=== PATIENT | female | born 1940 | race Caucasian/White ===

== ENCOUNTER 2016-10-28 00:38 | Observation (INO) | payer MEDICARE, MEDICAID ==
[2016-10-28] MEDS ORDERED: Pantoprazole 40 MG Vial IVPUSH ONE (00:43)
[2016-10-28] MEDS ORDERED: Aspirin 81 MG Tab.Chew PO ONE (00:43)
[2016-10-28] MEDS ORDERED: Sodium Chloride 0.9% 1,000 ML IV SCH (00:45)
--- NOTE | 2016-10-28 00:45 | EDM.PDOC ---
ED HPI GENERAL MEDICAL PROBLEM - General Stated Complaint: CHEST PAINS Time Seen by Provider: 10/28/16 00:44 Source of Information: Reports: Patient - History of Present Illness INITIAL COMMENTS - FREE TEXT/NARRATIVE: HISTORY AND PHYSICAL: History of present illness: [] Patient presents with chest pain and pressure 5/10 nonradiating at current, earlier she did have some pain radiating to the jaw, she attributes pain to eating sausage night for dinner at 6 PM pain began at 11 PM she does have belching that is persistent no fever nausea vomiting chills sweats no shortness of breath headache dizziness or palpitation no bowel or urine symptoms pain is not associated with shortness breath her diaphoresis Patient was provided nitroglycerin blood pressure dropped from 185/113-126/80 with resolution of pain History of hypertension and hypothyroidism Review of systems: As per history of present illness and below otherwise all systems reviewed and negative. Past medical history: As per history of present illness and as reviewed below otherwise noncontributory. Surgical history: As per history of present illness and as reviewed below otherwise noncontributory. Social history: No reported history of drug or alcohol abuse. Family history: As per history of present illness and as reviewed below otherwise noncontributory. Physical exam: HEENT: Atraumatic, normocephalic, pupils reactive, negative for conjunctival pallor or scleral icterus, mucous membranes moist, throat clear, neck supple, nontender, trachea midline. Lungs: Clear to auscultation, breath sounds equal bilaterally, chest nontender. Heart: S1S2, regular, negative for clicks, rubs, or JVD. Abdomen: Soft, nondistended, nontender. Negative for masses or hepatosplenomegaly. Negative for costovertebral tenderness. Pelvis: Stable nontender. Genitourinary: Deferred. Rectal: Deferred. Extremities: Atraumatic, negative for cords or calf pain. Neurovascular unremarkable. Neuro: Awake, alert, oriented. Cranial nerves II through XII unremarkable. Cerebellum unremarkable. Motor and sensory unremarkable throughout. Exam nonfocal. Diagnostics: [] Lab as below EKG Chest one view Therapeutics: [] Normal saline 125 cc per hour Protonix 80 mg IV Aspirin 324 mg chewable Nitroglycerin sublingual Lopressor 5 mg IV Impression: GERD [] Chest pain Hypertensive emergency resolved ACS Definitive disposition and diagnosis as appropriate pending reevaluation and review of above. Epigastric Pain Score (Numeric/FACES): 7 - Related Data Allergies Allergy/AdvReac Type Severity Reaction Status Date / Time No Known Allergies Allergy Verified 02/08/16 19:17 Home Meds: Home Meds Levothyroxine [Synthroid] 100 mcg PO DAILY 08/10/14 [History] Losartan/Hydrochlorothiazide [Losartan-HCTZ 100-25 MG] 1 tab PO DAILY 08/10/14 [ History] Memantine HCl [Namenda] 5 mg PO DAILY 10/28/16 [History] Past Medical History Cardiovascular History: Reports: Hypertension Other Cardiovascular History: Pt compalins of chest pain, son of pt reported it' s been going on for 4 days now but pt stated the pain worsen this morning that it got up into her left shouylder blade. Pt claimed no history of chest pain. 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: Endocrine/Metabolic History: Reports: Hyperthyroidism - Infectious Disease History Infectious Disease History: Reports: Chicken pox - Past Surgical History HEENT Surgical History: Reports: Tonsillectomy GI Surgical History: Reports: Cholecystectomy, Colonoscopy Female Surgical History: Reports: Hysterectomy Social & Family History - Family History Family Medical History: Noncontributory - Tobacco Use Smoking Status *Q: Never Smoker Second Hand Smoke Exposure: No - Caffeine Use Caffeine Use: Reports: Coffee Caffeine Use Comment: 1cup/day - Alcohol Use Days Per Week of Alcohol Use: 0 - Recreational Drug Use Recreational Drug Use: No ED ROS GENERAL - Review of Systems Review Of Systems: ROS reveals no pertinent complaints other than HPI. ED EXAM, GENERAL - Physical Exam Exam: See Below Course - Vital Signs Last Recorded V/S: Last Vital Signs Temp 36.3 C 10/28/16 00:47 Pulse 86 10/28/16 01:34 Resp 18 10/28/16 01:34 BP 145/76 H 10/28/16 01:34 Pulse Ox 95 10/28/16 01:34 - Orders/Labs/Meds Orders: Active Orders 24 hr Category Date Time Status EKG Documentation Completion [RC] STAT Care 10/28/16 00:44 Active Chest 1V Frontal [CR] Stat Exams 10/28/16 00:44 Taken UA W/MICROSCOPIC [URIN] Stat Lab 10/28/16 00:43 Uncollected Sodium Chloride 0.9% [Normal Saline] 1,000 ml Med 10/28/16 00:45 Active IV STAT Medication Orders Sodium Chloride (Normal Saline) 1,000 mls @ 125 mls/hr IV STAT FANNY Last Admin: 10/28/16 01:01 Dose: 125 mls/hr Labs: Laboratory Tests 10/28/16 10/28/16 10/28/16 Range/Units 01:00 01:00 01:00 WBC 5.65 (4.0-11.0) K/uL RBC 4.55 (4.30-5.90) M/uL Hgb 13.8 (12.0-16.0) g/dL Hct 42.1 (36.0-46.0) % MCV 92.5 (80.0-98.0) fL MCH 30.3 (27.0-32.0) pg MCHC 32.8 (31.0-37.0) g/dL RDW Std Deviation 45.8 (28.0-62.0) fl RDW Coeff of Arelis 14 (11.0-15.0) % Plt Count 218 (150-400) K/uL MPV 9.70 (7.40-12.00) fL Neut % (Auto) 56.0 (48.0-80.0) % Lymph % (Auto) 31.3 (16.0-40.0) % Moca % (Auto) 9.2 (0.0-15.0) % Eos % (Auto) 3.0 (0.0-7.0) % Baso % (Auto) 0.5 (0.0-1.5) % Neut # (Auto) 3.2 (1.4-5.7) K/uL Lymph # (Auto) 1.8 (0.6-2.4) K/uL Moca # (Auto) 0.5 (0.0-0.8) K/uL Eos # (Auto) 0.2 (0.0-0.7) K/uL Baso # (Auto) 0.0 (0.0-0.1) K/uL Nucleated RBC % 0.0 /100WBC Nucleated RBCs # 0 K/uL INR 0.96 (0.86-1.11) Sodium 140 (136-146) mmol/L Potassium 3.2 L (3.5-5.1) mmol/L Chloride 105 (98-110) mmol/L Carbon Dioxide 23 (21-31) mmol/L BUN 17 (6.0-23.0) mg/dL Creatinine 1.1 (0.6-1.5) mg/dL Est Cr Clr Drug Dosing 37.87 mL/min Estimated GFR (MDRD) 48.0 ml/min Glucose 97 (60-110) mg/dL Calcium 9.4 (8.8-10.8) mg/dL Total Bilirubin 0.4 (0.1-1.5) mg/dL AST 24 (5-40) IU/L ALT 16 (8-54) IU/L Alkaline Phosphatase 66 (40-150) Creatine Kinase 189 (9-236) IU/L CK-MB (CK-2) 3.6 (0-6.6) ng/ml Troponin I (0.0-0.29) NG/ML Total Protein 7.0 (6.0-8.0) g/dL Albumin 3.8 (3.4-4.8) g/dL Globulin 3.2 (2.0-3.5) g/dL Albumin/Globulin Ratio 1.2 L (1.3-2.8) 10/28/16 Range/Units 01:00 WBC (4.0-11.0) K/uL RBC (4.30-5.90) M/uL Hgb (12.0-16.0) g/dL Hct (36.0-46.0) % MCV (80.0-98.0) fL MCH (27.0-32.0) pg MCHC (31.0-37.0) g/dL RDW Std Deviation (28.0-62.0) fl RDW Coeff of Arelis (11.0-15.0) % Plt Count (150-400) K/uL MPV (7.40-12.00) fL Neut % (Auto) (48.0-80.0) % Lymph % (Auto) (16.0-40.0) % Moca % (Auto) (0.0-15.0) % Eos % (Auto) (0.0-7.0) % Baso % (Auto) (0.0-1.5) % Neut # (Auto) (1.4-5.7) K/uL Lymph # (Auto) (0.6-2.4) K/uL Moca # (Auto) (0.0-0.8) K/uL Eos # (Auto) (0.0-0.7) K/uL Baso # (Auto) (0.0-0.1) K/uL Nucleated RBC % /100WBC Nucleated RBCs # K/uL INR (0.86-1.11) Sodium (136-146) mmol/L Potassium (3.5-5.1) mmol/L Chloride (98-110) mmol/L Carbon Dioxide (21-31) mmol/L BUN (6.0-23.0) mg/dL Creatinine (0.6-1.5) mg/dL Est Cr Clr Drug Dosing mL/min Estimated GFR (MDRD) ml/min Glucose (60-110) mg/dL Calcium (8.8-10.8) mg/dL Total Bilirubin (0.1-1.5) mg/dL AST (5-40) IU/L ALT (8-54) IU/L Alkaline Phosphatase (40-150) Creatine Kinase (9-236) IU/L CK-MB (CK-2) (0-6.6) ng/ml Troponin I < 0.10 (0.0-0.29) NG/ML Total Protein (6.0-8.0) g/dL Albumin (3.4-4.8) g/dL Globulin (2.0-3.5) g/dL Albumin/Globulin Ratio (1.3-2.8) Meds: Medications Generic Name Dose Route Start Last Admin Trade Name Freq PRN Reason Stop Dose Admin Sodium Chloride 1,000 mls @ 125 mls/hr 10/28/16 00:45 10/28/16 01:01 Normal Saline IV 125 mls/hr STAT FANNY Administration Discontinued Medications Generic Name Dose Route Start Last Admin Trade Name Freq PRN Reason Stop Dose Admin Aspirin 324 mg 10/28/16 00:43 10/28/16 01:02 Aspirin PO 10/28/16 00:44 324 mg ONETIME ONE Administration Metoprolol Tartrate 5 mg 10/28/16 00:58 Lopressor IVPUSH 10/28/16 00:59 NOW STA Nitroglycerin 0.4 mg 10/28/16 00:59 10/28/16 01:05 Nitrostat SL 10/28/16 01:10 0.4 mg Q5M PRN Administration Chest Pain Pantoprazole Sodium 80 mg 10/28/16 00:43 10/28/16 01:02 Protonix Iv IVPUSH 10/28/16 00:44 80 mg .BOLUS ONE Administration Departure - Departure Time of Disposition: 01:52 Disposition: Admitted As Inpatient 64 Condition: fair Clinical Impression: Acute coronary syndrome - My Orders Last 24 Hours: My Active Orders 10/28/16 00:43 UA W/MICROSCOPIC [URIN] Stat 10/28/16 00:44 EKG Documentation Completion [RC] STAT Chest 1V Frontal [CR] Stat 10/28/16 00:45 Sodium Chloride 0.9% [Normal Saline] 1,000 ml IV STAT - Assessment/Plan Last 24 Hours: My Active Orders 10/28/16 00:43 UA W/MICROSCOPIC [URIN] Stat 10/28/16 00:44 EKG Documentation Completion [RC] STAT Chest 1V Frontal [CR] Stat 10/28/16 00:45 Sodium Chloride 0.9% [Normal Saline] 1,000 ml IV STAT
[2016-10-28] MEDS ORDERED: Metoprolol Tartrate 5 MG/5 ML SDV IVPUSH STA (00:58)
[2016-10-28] MEDS ORDERED: Nitroglycerin 0.4 MG Tab.SL SL PRN (00:59)
[2016-10-28] MEDS ORDERED: Sodium Chloride 0.9% 2.5 ML Syringe FLUSH PRN (02:46)
[2016-10-28] MEDS ORDERED: Sodium Chloride 0.9% 10 ML Syringe FLUSH PRN (02:46)
[2016-10-28] MEDS ORDERED: Nitroglycerin 2% Oint 1 GM UD Packet TOP PRN (02:47)
[2016-10-28] MEDS ORDERED: Morphine 2 MG/ML Syringe IVPUSH PRN (02:49)
[2016-10-28] MEDS ORDERED: Potassium Chloride 20 MEQ Tab.ER PO ONE (02:52)
[2016-10-28] MEDS ORDERED: Loperamide 2 MG Cap PO PRN (02:53)
[2016-10-28] MEDS ORDERED: Hydrochlorothiazide/Losartan 12.5-50 mg Tab PO SCH (09:00)
[2016-10-28] MEDS ORDERED: Levothyroxine 100 MCG Tab PO SCH (09:00)
[2016-10-28] MEDS ORDERED: Memantine 10 MG Tab PO SCH (09:00)
--- NOTE | 2016-10-28 11:20 | PCM.HP ---
[id number] Diagnosis/Problem Admission Diagnosis/Problem Acute coronary syndrome Source of Information: Patient History Limitations: Reports: No limitations - History of Present Illness Initial Comments - Free Text/Narative: The patient is a 76-year-old lady who presented to the emergency department with chest pain with some radiation into her jaw, and arm. The patient reports that she had been working heavily through the night in order to move to a new house out of town. The patient says that she had worked heavily to get to work completed and then suddenly felt very tired and weak had something to eat which she does not normally eat and started to develop chest pain as a result of this. The patient had described the pain as pressure and burning and belching. The patient has a primary care physician locally that she sees. Patient has been in her usual state of health up at the present time. Physical examination the patient was pain-free, no pain in her abdomen and back at her baseline. The patient also has a history of chest wall pain, hypertension, hypothyroidism and mild dementia. She's been taking medications for these. The patient was last evaluated by her internal medicine physician on Aug 16, 2016. 3 sets of troponins have been negative and the patient does not have a dynamic EKG. The patient should followup with her primary care physician for possible stress test. The patient will be discharged to have diet as tolerated and activity as tolerated. Onset of Symptoms: Reports: sudden Duration of Symptoms: Reports: Hour(s):, Improving Location: Reports: chest, abdomen Quality: Reports: Ache, Stabbing Severity: moderate Improves with: Reports: None Worsens with: Reports: None Associated Symptoms: Reports: no other symptoms Epigastric Pain Score (Numeric/FACES): 7 - Related Data Allergies/Adverse Reactions: Allergies Allergy/AdvReac Type Severity Reaction Status Date / Time No Known Allergies Allergy Verified 02/08/16 19:17 Home Medications: Home Meds Levothyroxine [Synthroid] 100 mcg PO DAILY 08/10/14 [History] Losartan/Hydrochlorothiazide [Losartan-HCTZ 100-25 MG] 1 tab PO DAILY 08/10/14 [ History] Memantine HCl [Namenda] 5 mg PO DAILY 10/28/16 [History] Past Medical History HEENT History: Reports: None Other HEENT History: wears glasses Cardiovascular History: Reports: Hypertension Other Cardiovascular History: Pt complains of chest pain, son of pt reported it' s been going on for 4 days now but pt stated the pain worsen this morning that it got up into her left shouylder blade. Pt claimed no history of chest pain. 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 Endocrine/Metabolic History: Reports: Hyperthyroidism - Infectious Disease History Infectious Disease History: Reports: Chicken pox - Past Surgical History HEENT Surgical History: Reports: Tonsillectomy Cardiovascular Surgical History: Reports: None GI Surgical History: Reports: Cholecystectomy, Colonoscopy Female Surgical History: Reports: Hysterectomy Endocrine Surgical History: Reports: None Musculoskeletal Surgical History: Reports: None Social & Family History - Family History Family Medical History: Noncontributory Cardiac: Reports: Hypertension Neurological: Reports: Alzheimers disease - Tobacco Use Smoking Status *Q: Never Smoker Second Hand Smoke Exposure: No - Caffeine Use Caffeine Use: Reports: Coffee Caffeine Use Comment: 1cup/day - Alcohol Use Days Per Week of Alcohol Use: 0 - Recreational Drug Use Recreational Drug Use: No H&P Review of Systems - Review of Systems: Review Of Systems: See Below General: Reports: no symptoms HEENT: Reports: no symptoms Pulmonary: Reports: Shortness of Breath Cardiovascular: Reports: chest pain Gastrointestinal: Reports: No symptoms Genitourinary: Reports: no symptoms Musculoskeletal: Reports: no symptoms Skin: Reports: no symptoms Psychiatric: Reports: no symptoms Neurological: Reports: No Symptoms Hematologic/Lymphatic: Reports: no symptoms Immunologic: Reports: no symptoms Exam - Exam Exam: See Below - Vital Signs Vital Signs: Last Vital Signs Temp 36.6 C 10/28/16 08:00 Pulse 66 10/28/16 08:00 Resp 18 10/28/16 08:00 BP 146/73 H 10/28/16 08:00 Pulse Ox 91 L 10/28/16 08:00 Weight: 103.011 kg - Exam Quality Assessment: No: supplemental oxygen General: alert, oriented, 4 HEENT: Conjunctiva clear, EACs clear, EOMI, Hearing intact, Mucosa moist & pink , Nares patent, Normal nasal septum Neck: supple, trachea midline. No: lymphadenopathy Lungs: Decreased breath sounds, Rales Cardiovascular: regular rate, regular rhythm Abdomen: normal bowel sounds Back Exam: decreased range of motion Extremities: normal inspection Skin: warm, dry, intact Neurological: cranial nerves intact Neuro Extensive - Mental Status: alert, oriented x3 Neuro Extensive - Motor, Sensory, Reflexes: CN II-XII intact Psychiatric: alert, normal affect - Patient Data Lab Results last 24 hrs: Laboratory Results - last 24 hr 10/28/16 10/28/16 10/28/16 Range/Units 02:26 07:14 07:14 Potassium 3.3 L (3.5-5.1) mmol/L Troponin I < 0.10 (0.0-0.29) NG/ML Urine Color YELLOW Urine Appearance SLT CLOUDY Urine pH 6.0 (5.0-8.0) Ur Specific [place] 1.015 (1.001-1.035) Urine Protein NEGATIVE (NEGATIVE) mg/dL Urine Glucose (UA) NEGATIVE (NEGATIVE) mg/dL Urine Ketones NEGATIVE (NEGATIVE) mg/dL Urine Occult Blood NEGATIVE (NEGATIVE) Urine Nitrite NEGATIVE (NEGATIVE) Urine Bilirubin NEGATIVE (NEGATIVE) Urine Urobilinogen 0.2 (<2.0) EU/dL Ur Leukocyte Esterase SMALL (NEGATIVE) Urine RBC 0-2 (0-2/HPF) Urine WBC 12-20 (0-5/HPF) Ur Epithelial Cells FEW (NONE-FEW) Amorphous Sediment LIGHT (NEGATIVE) Urine Bacteria FEW (NEGATIVE) Urine Mucus LIGHT (NONE-MOD) Result Diagrams: 10/28/16 01:00 10/28/16 07:14 *Q Meaningful Use (ADM) - VTE *Q VTE Criteria *Q: - Stroke *Q Stroke Criteria *Q: - AMI *Q AMI Criteria *Q: - Problem List (1) Acute coronary syndrome SNOMED Code(s): 264397273 ICD Code: I24.9 - ACUTE ISCHEMIC HEART DISEASE, UNSPECIFIED Status: Acute Current Visit: Yes (2) Hiatal hernia SNOMED Code(s): 77075214 ICD Code: K44.9 - DIAPHRAGMATIC HERNIA WITHOUT OBSTRUCTION OR GANGRENE Status: Chronic Priority: Medium Current Visit: Yes (3) Atypical chest pain SNOMED Code(s): 077322073 ICD Code: R07.89 - OTHER CHEST PAIN Status: Acute Current Visit: No Problem List Initiated/Reviewed/Updated: Yes Orders Last 24hrs: Active Orders 24 hr Category Date Time Status Admission Status [Patient Status] [ADT] Routine ADT 10/28/16 02:44 Active EKG 12 Lead [EKG Documentation Completion] [RC] ROUTINE Care 10/28/16 08:00 Active Telemetry Monitoring [Cardiac Monitoring] [RC] . Care 10/28/16 02:52 Active DIRECTED Heart Healthy Diet [DIET] Diet 10/28/16 Breakfast Active CULTURE URINE [RM] Routine Lab 10/28/16 02:29 Received TROPONIN I [CHEM] Q6H Lab 10/28/16 13:00 Ordered Hydrochlorothiazide/Losartan [Hyzaar 50-12.5 MG] Med 10/28/16 09:00 Active 2 tab PO DAILY Levothyroxine [Synthroid] Med 10/28/16 09:00 Active 100 mcg PO ACBREAKFAST Loperamide [Imodium] Med 10/28/16 02:53 Active 4 mg PO Q6H PRN Memantine [Namenda] Med 10/28/16 09:00 Active 5 mg PO DAILY Morphine Med 10/28/16 02:49 Active 2 mg IVPUSH Q4H PRN Nitroglycerin [Nitro-Bid 2%] Med 10/28/16 02:47 Active 1 gm TOP Q8H PRN Sodium Chloride 0.9% [Saline Flush] Med 10/28/16 02:46 Active 10 ml FLUSH ASDIRECTED PRN Sodium Chloride 0.9% [Saline Flush] Med 10/28/16 02:46 Active 2.5 ml FLUSH ASDIRECTED PRN Convert IV to Saline Lock [OM.PC] Routine Oth 10/28/16 02:46 Ordered Medication Orders HCTZ/Losartan Potassium (Hyzaar 50-12.5 Mg) 2 tab PO DAILY FANNY Last Admin: 10/28/16 09:22 Dose: 2 tab Levothyroxine Sodium (Synthroid) 100 mcg PO ACBREAKFAST FANNY Last Admin: 10/28/16 09:23 Dose: 100 mcg Loperamide HCl (Imodium) 4 mg PO Q6H PRN PRN Reason: Diarrhea Memantine (Namenda) 5 mg PO DAILY FANNY Last Admin: 10/28/16 09:23 Dose: 5 mg Morphine Sulfate (Morphine) 2 mg IVPUSH Q4H PRN PRN Reason: Chest Pain Nitroglycerin (Nitro-Bid 2%) 1 gm TOP Q8H PRN PRN Reason: Chest Pain Sodium Chloride (Saline Flush) 10 ml FLUSH ASDIRECTED PRN PRN Reason: Keep Vein Open Sodium Chloride (Saline Flush) 2.5 ml FLUSH ASDIRECTED PRN PRN Reason: Keep Vein Open Assessment/Plan Comment:: Patient is a 76-year-old lady who is admitted acutely secondary to atypical chest pain. The patient did have food that she was not used to eating and subsequently had pain as a result of this. Workup has been normal from a cardiac standpoint. The patient says that she does have a history of hiatal hernia and this is likely the origin of the patient's atypical chest pain. The patient should followup with her primary care physician in 5-7 days. She'll also be discharged with an activity as tolerated and also to continue her medications as prescribed. The patient is doing well and her vital signs are stable.
[2016-10-28 13:05] VITALS: BP 140/70
--- NOTE | 2016-10-29 17:55 | CR ---
EXAM DATE: 10/28/16 PATIENT'S AGE: 76 Patient: MELONY MOON Facility: [place], [place] Site . Site : [id number] Study: XRay Chest [id number]/29/2017 1:24:38 AM Ordering Physician: Doctor Rondon Final Report: INDICATION: chest pain TECHNIQUE: Chest 1 view COMPARISON: June 30, 2016. FINDINGS: Cardiovascular and mediastinum: Heart size and vasculature are normal in caliber and appearance. Mediastinum is within normal limits. Lungs and pleural space: No focal consolidation. No sign of pleural effusion. No pneumothorax. Bones and soft tissues: Degenerative changes. . IMPRESSION: No acute cardiopulmonary disease. Dictated by Glenn Jules MD @ 10/28/2016 1:27:07 AM Dictated by: Glenn Jules MD @ 10/28/2016 01:27:13 (Electronic Signature) Report Signed by Proxy. [email or web address]
== END 2016-10-28 15:25 | disposition home or self-care (01) ==
LOC: MW.ED 00:38 → MW.MS 01:53
PROVIDERS: ADMIT Internal Medicine; ATTEND Internal Medicine
DX: R07.89 Other chest pain (principal); I10 Essential (primary) hypertension; E03.9 Hypothyroidism, unspecified; K21.9 Gastro-esophageal reflux disease without esophagitis; Z79.899 Other long term (current) drug therapy; M06.9 Rheumatoid arthritis, unspecified; G89.29 Other chronic pain; M54.9 Dorsalgia, unspecified; K44.9 Diaphragmatic hernia without obstruction or gangrene
CPT/HCPCS: 36415; 71010; 80053; 81001; 82550; 82553; 84132; 84484; 85025; 85610; 87086; 93005; 96361; 96374; 99285; A9270; C9113; J7040; G0378

== ENCOUNTER 2016-11-28 02:11 | Emergency (ER) | payer MEDICARE, MEDICAID ==
[2016-11-28] MEDS ORDERED: Ondansetron 4 MG/2 ML SDV IVPUSH ONE (02:19)
[2016-11-28] MEDS ORDERED: Sodium Chloride 0.9% 500 ML IV ONE (02:24)
--- NOTE | 2016-11-28 02:27 | EDM.PDOC ---
ED HPI GENERAL MEDICAL PROBLEM - General Chief Complaint: Abdominal Pain Stated Complaint: AMBULANCE Time Seen by Provider: 11/28/16 02:24 - History of Present Illness INITIAL COMMENTS - FREE TEXT/NARRATIVE: HISTORY AND PHYSICAL: History of present illness: Patient is a 76-year-old female with a history of coronary artery disease past surgical history includes cholecystectomy and hysterectomy presents with her right-sided abdominal pain that started approximately 7 PM she's had associated nausea she denies chest pain or shortness of breath denies trauma denies urinary symptoms denies vaginal discharge bleeding or other concern Review of systems: As per history of present illness and below otherwise all systems reviewed and negative. Past medical history: As per history of present illness and as reviewed below otherwise noncontributory. Surgical history: As per history of present illness and as reviewed below otherwise noncontributory. Social history: No reported history of drug or alcohol abuse. Family history: As per history of present illness and as reviewed below otherwise noncontributory. Physical exam: HEENT: Atraumatic, normocephalic, pupils reactive, negative for conjunctival pallor or scleral icterus, mucous membranes moist, throat clear, neck supple, nontender, trachea midline. Lungs: Clear to auscultation, breath sounds equal bilaterally, chest nontender. Heart: S1S2, regular, negative for clicks, rubs, or JVD. Abdomen: Soft, nondistended, right-sided tenderness that's not well localized no rebound no guarding. Negative for masses or hepatosplenomegaly. Negative for costovertebral tenderness. Pelvis: Stable nontender. Genitourinary: Deferred. Rectal: Deferred. Extremities: Atraumatic, negative for cords or calf pain. Neurovascular unremarkable. Neuro: Awake, alert, oriented. Cranial nerves II through XII unremarkable. Cerebellum unremarkable. Motor and sensory unremarkable throughout. Exam nonfocal. Diagnostics: CBC CMP PT/INR troponin lipase chest x-ray CT abdomen and pelvis Therapeutics: Normal saline 500 cc bolus Impression: #1 right-sided abdominal pain Definitive disposition and diagnosis as appropriate pending reevaluation and review of above. Right Lower Abdomen Pain Score (Numeric/FACES): 8 - Related Data Allergies Allergy/AdvReac Type Severity Reaction Status Date / Time No Known Allergies Allergy Verified 11/28/16 02:25 Home Meds: Home Meds Levothyroxine [Synthroid] 100 mcg PO DAILY 08/10/14 [History] Losartan/Hydrochlorothiazide [Losartan-HCTZ 100-25 MG] 1 tab PO DAILY 08/10/14 [ History] Memantine HCl [Namenda] 5 mg PO DAILY 10/28/16 [History] Past Medical History HEENT History: Reports: None Other HEENT History: wears glasses Cardiovascular History: Reports: Hypertension Other Cardiovascular History: Pt complains of chest pain, son of pt reported it' s been going on for 4 days now but pt stated the pain worsen this morning that it got up into her left shouylder blade. Pt claimed no history of chest pain. 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 Endocrine/Metabolic History: Reports: Hyperthyroidism - Infectious Disease History Infectious Disease History: Reports: Chicken Pox - Past Surgical History HEENT Surgical History: Reports: Tonsillectomy Cardiovascular Surgical History: Reports: None GI Surgical History: Reports: Cholecystectomy, Colonoscopy Female Surgical History: Reports: Hysterectomy Endocrine Surgical History: Reports: None Musculoskeletal Surgical History: Reports: None Social & Family History - Family History Family Medical History: Noncontributory Cardiac: Reports: Hypertension Neurological: Reports: Alzheimers Disease - Tobacco Use Smoking Status *Q: Never Smoker Second Hand Smoke Exposure: No - Caffeine Use Caffeine Use: Reports: Coffee Caffeine Use Comment: 1cup/day - Alcohol Use Days Per Week of Alcohol Use: 0 - Recreational Drug Use Recreational Drug Use: No ED ROS GENERAL - Review of Systems Review Of Systems: ROS reveals no pertinent complaints other than HPI. ED EXAM, GENERAL - Physical Exam Exam: See Below (See dictation) Course - Vital Signs Last Recorded V/S: Last Vital Signs Temp 36.4 C 11/28/16 02:19 Pulse 78 11/28/16 03:14 Resp 16 11/28/16 03:14 BP 164/88 H 11/28/16 03:14 Pulse Ox 98 11/28/16 03:14 - Orders/Labs/Meds Orders: Active Orders 24 hr Category Date Time Status EKG Documentation Completion [RC] STAT Care 11/28/16 02:25 Active Abdomen Pelvis wo Cont [CT] Stat Exams 11/28/16 02:25 Taken Chest 1V Frontal [CR] Stat Exams 11/28/16 02:29 Taken Labs: Laboratory Tests 11/28/16 11/28/16 11/28/16 Range/Units 02:20 02:20 02:20 WBC 8.18 (4.0-11.0) K/uL RBC 4.55 (4.30-5.90) M/uL Hgb 13.9 (12.0-16.0) g/dL Hct 42.3 (36.0-46.0) % MCV 93.0 (80.0-98.0) fL MCH 30.5 (27.0-32.0) pg MCHC 32.9 (31.0-37.0) g/dL RDW Std Deviation 46.5 (28.0-62.0) fl RDW Coeff of Arelis 14 (11.0-15.0) % Plt Count 213 (150-400) K/uL MPV 9.50 (7.40-12.00) fL Neut % (Auto) 69.5 (48.0-80.0) % Lymph % (Auto) 18.3 (16.0-40.0) % Banks % (Auto) 10.4 (0.0-15.0) % Eos % (Auto) 1.6 (0.0-7.0) % Baso % (Auto) 0.2 (0.0-1.5) % Neut # (Auto) 5.7 (1.4-5.7) K/uL Lymph # (Auto) 1.5 (0.6-2.4) K/uL Banks # (Auto) 0.9 H (0.0-0.8) K/uL Eos # (Auto) 0.1 (0.0-0.7) K/uL Baso # (Auto) 0.0 (0.0-0.1) K/uL Nucleated RBC % 0.0 /100WBC Nucleated RBCs # 0 K/uL INR (0.86-1.11) Sodium 139 (136-146) mmol/L Potassium 3.7 (3.5-5.1) mmol/L Chloride 104 (98-110) mmol/L Carbon Dioxide 24 (21-31) mmol/L BUN 26 H (6.0-23.0) mg/dL Creatinine 1.4 (0.6-1.5) mg/dL Est Cr Clr Drug Dosing 31.00 mL/min Estimated GFR (MDRD) 36.4 ml/min Glucose 105 (60-110) mg/dL Calcium 9.0 (8.8-10.8) mg/dL Total Bilirubin 0.6 (0.1-1.5) mg/dL AST 21 (5-40) IU/L ALT 15 (8-54) IU/L Alkaline Phosphatase 64 (40-150) Troponin I < 0.10 (0.0-0.29) NG/ML Total Protein 7.1 (6.0-8.0) g/dL Albumin 4.1 (3.4-4.8) g/dL Globulin 3.0 (2.0-3.5) g/dL Albumin/Globulin Ratio 1.4 (1.3-2.8) Lipase 57 (7-80) U/L Urine Color Urine Appearance Urine pH (5.0-8.0) Ur Specific [place] (1.001-1.035) Urine Protein (NEGATIVE) mg/dL Urine Glucose (UA) (NEGATIVE) mg/dL Urine Ketones (NEGATIVE) mg/dL Urine Occult Blood (NEGATIVE) Urine Nitrite (NEGATIVE) Urine Bilirubin (NEGATIVE) Urine Urobilinogen (<2.0) EU/dL Ur Leukocyte Esterase (NEGATIVE) Urine RBC (0-2/HPF) Urine WBC (0-5/HPF) Ur Epithelial Cells (NONE-FEW) Urine Bacteria (NEGATIVE) Urine Mucus (NONE-MOD) 11/28/16 11/28/16 Range/Units 02:20 02:25 WBC (4.0-11.0) K/uL RBC (4.30-5.90) M/uL Hgb (12.0-16.0) g/dL Hct (36.0-46.0) % MCV (80.0-98.0) fL MCH (27.0-32.0) pg MCHC (31.0-37.0) g/dL RDW Std Deviation (28.0-62.0) fl RDW Coeff of Arelis (11.0-15.0) % Plt Count (150-400) K/uL MPV (7.40-12.00) fL Neut % (Auto) (48.0-80.0) % Lymph % (Auto) (16.0-40.0) % Banks % (Auto) (0.0-15.0) % Eos % (Auto) (0.0-7.0) % Baso % (Auto) (0.0-1.5) % Neut # (Auto) (1.4-5.7) K/uL Lymph # (Auto) (0.6-2.4) K/uL [place] # (Auto) (0.0-0.8) K/uL Eos # (Auto) (0.0-0.7) K/uL Baso # (Auto) (0.0-0.1) K/uL Nucleated RBC % /100WBC Nucleated RBCs # K/uL INR 0.90 (0.86-1.11) Sodium (136-146) mmol/L Potassium (3.5-5.1) mmol/L Chloride (98-110) mmol/L Carbon Dioxide (21-31) mmol/L BUN (6.0-23.0) mg/dL Creatinine (0.6-1.5) mg/dL Est Cr Clr Drug Dosing mL/min Estimated GFR (MDRD) ml/min Glucose (60-110) mg/dL Calcium (8.8-10.8) mg/dL Total Bilirubin (0.1-1.5) mg/dL AST (5-40) IU/L ALT (8-54) IU/L Alkaline Phosphatase (40-150) Troponin I (0.0-0.29) NG/ML Total Protein (6.0-8.0) g/dL Albumin (3.4-4.8) g/dL Globulin (2.0-3.5) g/dL Albumin/Globulin Ratio (1.3-2.8) Lipase (7-80) U/L Urine Color YELLOW Urine Appearance CLEAR Urine pH 5.5 (5.0-8.0) Ur Specific [place] 1.025 (1.001-1.035) Urine Protein NEGATIVE (NEGATIVE) mg/dL Urine Glucose (UA) NEGATIVE (NEGATIVE) mg/dL Urine Ketones NEGATIVE (NEGATIVE) mg/dL Urine Occult Blood TRACE-INTACT (NEGATIVE) Urine Nitrite NEGATIVE (NEGATIVE) Urine Bilirubin NEGATIVE (NEGATIVE) Urine Urobilinogen 0.2 (<2.0) EU/dL Ur Leukocyte Esterase TRACE (NEGATIVE) Urine RBC 5-8 (0-2/HPF) Urine WBC 4-8 (0-5/HPF) Ur Epithelial Cells MODERATE (NONE-FEW) Urine Bacteria FEW (NEGATIVE) Urine Mucus LIGHT (NONE-MOD) Meds: Medications Discontinued Medications Generic Name Dose Route Start Last Admin Trade Name Diana PRN Reason Stop Dose Admin Sodium Chloride 500 mls @ 999 mls/hr 11/28/16 02:24 11/28/16 02:38 Normal Saline IV 11/28/16 02:54 999 mls/hr .BOLUS ONE Administration Ondansetron HCl 4 mg 11/28/16 02:19 11/28/16 02:36 Zofran IVPUSH 11/28/16 02:20 4 mg ONETIME ONE Administration Departure - Departure Time of Disposition: 03:30 Disposition: Home, Self-Care 01 Condition: good Clinical Impression: Ureterolithiasis - Discharge Information Forms: ED Department Discharge Additional Instructions: The following information is given to patients seen in the emergency department who are being discharged to home. This information is to outline your options for follow-up care. We provide all patients seen in our emergency department with a follow-up referral. The need for follow-up, as well as the timing and circumstances, are variable depending upon the specifics of your emergency department visit. If you don't have a primary care physician on staff, we will provide you with a referral. We always advise you to contact your personal physician following an emergency department visit to inform them of the circumstance of the visit and for follow-up with them and/or the need for any referrals to a consulting specialist. The emergency department will also refer you to a specialist when appropriate. This referral assures that you have the opportunity for followup care with a specialist. All of these measure are taken in an effort to provide you with optimal care, which includes your followup. Under all circumstances we always encourage you to contact your private physician who remains a resource for coordinating your care. When calling for followup care, please make the office aware that this follow-up is from your recent emergency room visit. If for any reason you are refused follow-up, please contact the [facility] emergency department at and asked to speak to the emergency department charge nurse. [facility] [address] [place] [id number] Push fluids follow up primary medical doctor one to 2 days return as needed as discussed - My Orders Last 24 Hours: My Active Orders 11/28/16 02:25 EKG Documentation Completion [RC] STAT Abdomen Pelvis wo Cont [CT] Stat 11/28/16 02:29 Chest 1V Frontal [CR] Stat - Assessment/Plan Last 24 Hours: My Active Orders 11/28/16 02:25 EKG Documentation Completion [RC] STAT Abdomen Pelvis wo Cont [CT] Stat 11/28/16 02:29 Chest 1V Frontal [CR] Stat
[2016-11-28 03:43] VITALS: BP 160/85
--- NOTE | 2016-11-28 14:49 | CR ---
EXAM DATE: 11/28/16 PATIENT'S AGE: 76 Patient: MELONY MOON Facility: [place], [place] Site . Site : 1940 Study: XRay Chest [id number]/[id number] 2:43:48 AM Ordering Physician: Tatum Lopez Final Report: INDICATION: pain, sob TECHNIQUE: Chest 1 view. COMPARISON: 10/28/16 FINDINGS: Cardiovascular and mediastinum: Heart size and vasculature are normal in caliber and appearance. Mediastinum is within normal limits. Lungs and pleural space: Lungs are clear. No sign of infiltrate or mass. No sign of pleural effusion. No pneumothorax. Bones and soft tissues: No significant findings. IMPRESSION: Unremarkable chest. Dictated by: Ishan Goode MD @ 11/28/2016 02:47:19 (Electronic Signature) Report Signed by Proxy. [facility]ISION[facility]my
--- NOTE | 2016-11-28 14:50 | CT ---
EXAM DATE: 11/28/16 PATIENT'S AGE: 76 Patient: MELONY MOON Facility: [place], [place] Site . Site : 1940 Study: CT Abdomen/Pelvis [id number]/30/2017 3:17:15 AM Ordering Physician: Tatum Lopez Final Report: INDICATION: Abdominal pain TECHNIQUE: CT abdomen and pelvis without contrast. COMPARISON: 02/08/2016. FINDINGS: Lower chest: Unremarkable. Liver: Unremarkable. Spleen: Unremarkable. Pancreas: Unremarkable. Gallbladder and bile ducts: Status post cholecystectomy. Kidneys: 5 millimeter obstructing calculi distal right ureter with moderate right hydronephrosis. Punctate bilateral nonobstructing renal calculi. Adrenal glands: Unremarkable. GI tract: Colonic fecal retention. Appendix is normal. Vascular structures: Unremarkable. Lymph nodes: Unremarkable. Miscellaneous: Unremarkable. No free air or significant free fluid. Pelvic Organs: Stable 7 millimeter right ovarian/adnexal cyst. Bones: Brain 182 cc L4 over L5. IMPRESSION: 5 millimeter obstructing calculus distal right ureter with moderate hydronephrosis. Punctate bilateral nonobstructing renal calculi. Stable 7.0 centimeter right ovarian/adnexal cyst. Please note that all CT scans at this facility use dose modulation, iterative reconstruction, and/or weight-based dosing when appropriate to reduce radiation dose to as low as reasonably achievable. Dictated by Ishan Goode MD @ Nov 28 2016 3:21AM (Electronic Signature) Report Signed by Proxy. [facility]my
== END 2016-11-28 03:40 | disposition home or self-care (01) ==
LOC: MW.ED 02:11
DX: N13.2 Hydronephrosis with renal and ureteral calculous obstruction (principal); I10 Essential (primary) hypertension; E05.90 Thyrotoxicosis, unspecified without thyrotoxic crisis or storm; Z90.49 Acquired absence of other specified parts of digestive tract; Z90.710 Acquired absence of both cervix and uterus; Z98.890 Other specified postprocedural states; Z79.899 Other long term (current) drug therapy
CPT/HCPCS: 36415; 71010; 74176; 80053; 81001; 83690; 84484; 85025; 85610; 93005; 96361; 96374; 99285; J2405; J7040; 99284

== ENCOUNTER 2020-12-20 20:56 | Inpatient (IN) | payer MEDICARE, MEDICAID ==
--- NOTE | 2020-12-20 21:00 | EDM.PDOC ---
ED HPI GENERAL MEDICAL PROBLEM - General Stated Complaint: WEAKNESS, SICK Time Seen by Provider: 12/20/20 20:59 Source of Information: Reports: Patient History Limitations: Reports: No Limitations - History of Present Illness INITIAL COMMENTS - FREE TEXT/NARRATIVE: 80-year-old female past medical history hypertension, dementia presents for generalized weakness and feeling sick. Patient notes that for the last 2 days she has been experiencing nausea, vomiting, diarrhea. Denies bloody emesis or bloody stools. Denies recent antibiotic use. Denies any abdominal pain. Denies urinary symptoms. States that she feels dizzy and weak particularly with walking. Denies any chest pain or difficulty breathing. Difficulty in assessing how many episodes of vomiting or diarrhea. She notes chills and sh aking. - Related Data Allergies Allergy/AdvReac Type Severity Reaction Status Date / Time No Known Allergies Allergy Verified 12/20/20 21:01 Home Meds: Home Meds Levothyroxine [Synthroid] 88 mcg PO DAILY 08/10/14 [History] Losartan/Hydrochlorothiazide [Losartan-HCTZ 100-25 MG] 1 tab PO DAILY 08/10/14 [History] Memantine HCl [Namenda] 5 mg PO DAILY 10/28/16 [History] Aspirin 81 mg PO DAILY 12/20/20 [History] Potassium Chloride 10 meq PO DAILY 12/20/20 [History] Past Medical History HEENT History: Reports: None Other HEENT History: wears glasses Cardiovascular History: Reports: Hypertension Other Cardiovascular History: Pt complains of chest pain, son of pt reported it's been going on for 4 days now but pt stated the pain worsen this morning that it got up into her left shouylder blade. Pt claimed no history of chest pain. 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 Endocrine/Metabolic History: Reports: Hyperthyroidism - Infectious Disease History Infectious Disease History: Reports: Chicken Pox - Past Surgical History HEENT Surgical History: Reports: Tonsillectomy Cardiovascular Surgical History: Reports: None GI Surgical History: Reports: Cholecystectomy, Colonoscopy Female Surgical History: Reports: Hysterectomy Endocrine Surgical History: Reports: None Musculoskeletal Surgical History: Reports: None Social & Family History - Family History Family Medical History: No Pertinent Family History Cardiac: Reports: Hypertension Neurological: Reports: Alzheimers Disease - Caffeine Use Caffeine Use: Reports: Coffee Caffeine Use Comment: 1cup/day ED ROS GENERAL - Review of Systems Review Of Systems: Comprehensive ROS is negative, except as noted in HPI. ED EXAM, GENERAL - Physical Exam Exam: See Below Exam Limited By: No Limitations General Appearance: Alert, WD/WN, No Apparent Distress, Other (chills/shakes) Eye Exam: Bilateral Eye: PERRL Ears: Normal External Exam Nose: Normal Inspection Throat/Mouth: Normal Voice, No Airway Compromise Head: Atraumatic, Normocephalic Neck: Normal Inspection Respiratory/Chest: No Respiratory Distress, Lungs Clear, Normal Breath Sounds, No Accessory Muscle Use Cardiovascular: Normal Peripheral Pulses, Regular Rate, Rhythm, No Edema GI/Abdominal: Soft, Non-Tender Extremities: Normal Inspection Neurological: Alert, Normal Cognition, No Motor/Sensory Deficits Psychiatric: Normal Affect, Normal Mood Skin Exam: Warm, Dry, Intact, Normal Color #1 Interpretation EKG Date: 12/20/20 Time: 21:20 Rhythm: NSR Rate (Beats/Min): 81 [place]: Normal P-Wave: Present QRS: Normal ST-T: Normal QT: Normal MD/PQ Interval: 197 EKG Interpretation Comments: multiple PVCs; otherwise nonspecific ICVD similar in appearance to prior EKG Course - Vital Signs Last Recorded V/S: Last Vital Signs Temp 98.5 F 12/21/20 00:19 Pulse 82 12/21/20 00:19 Resp 18 12/21/20 00:19 BP 109/62 12/21/20 00:19 Pulse Ox 97 12/21/20 00:19 - Orders/Labs/Meds Orders: Active Orders 24 hr Category Date Time Status Patient Status [ADT] Routine ADT 12/21/20 00:31 Ordered Blood Glucose Check, Bedside [RC] ONETIME Care 12/20/20 21:11 Active EKG Documentation Completion [RC] STAT Care 12/20/20 21:10 Active C DIFFICILE AG/TOXIN W/REFLEX [RM] Stat Lab 12/20/20 22:33 Ordered CULTURE URINE [MREF] Stat Lab 12/21/20 00:31 Ordered OVA & PARASITES BY IMMUNOASSAY [MREF] Stat Lab 12/20/20 22:33 Ordered STOOL CULTURE/SHIGA TOXIN [MREF] Stat Lab 12/20/20 22:33 Ordered Sodium Chloride 0.9% [Normal Saline] 1,000 ml Med 12/20/20 21:50 Active IV .Bolus Sodium Chloride 0.9% [Saline Flush] Med 12/20/20 21:10 Active 10 ml FLUSH ASDIRECTED PRN Sodium Chloride 0.9% [Saline Flush] Med 12/20/20 21:10 Active 2.5 ml FLUSH ASDIRECTED PRN Saline Lock Insert [OM.PC] Stat Oth 12/20/20 21:10 Ordered Medication Orders Sodium Chloride (Normal Saline) 1,000 mls @ 250 mls/hr IV .Bolus ONE Stop: 12/21/20 01:49 Last Admin: 12/20/20 23:28 Dose: 250 mls/hr Documented by: TONY Sodium Chloride (Sodium Chloride 0.9% 10 Ml Syringe) 10 ml FLUSH ASDIRECTED PRN PRN Reason: Keep Vein Open Sodium Chloride (Sodium Chloride 0.9% 2.5 Ml Syringe) 2.5 ml FLUSH ASDIRECTED PRN PRN Reason: Keep Vein Open Labs: Laboratory Tests 12/20/20 12/20/20 12/20/20 Range/Units 21:00 21:00 21:00 WBC 7.64 (4.0-11.0) K/uL RBC 4.10 L (4.30-5.90) M/uL Hgb 12.7 (12.0-16.0) g/dL Hct 38.0 (36.0-46.0) % MCV 92.7 (80.0-98.0) fL MCH 31.0 (27.0-32.0) pg MCHC 33.4 (31.0-37.0) g/dL RDW Std Deviation 45.2 (28.0-62.0) fl RDW Coeff of Arelis 13 (11.0-15.0) % Plt Count 242 (150-400) K/uL MPV 10.10 (7.40-12.00) fL Neut % (Auto) 83.5 H (48.0-80.0) % Lymph % (Auto) 11.8 L (16.0-40.0) % [place] % (Auto) 4.5 (0.0-15.0) % Eos % (Auto) 0.1 (0.0-7.0) % Baso % (Auto) 0.1 (0.0-1.5) % Neut # (Auto) 6.4 H (1.4-5.7) K/uL Lymph # (Auto) 0.9 (0.6-2.4) K/uL [place] # (Auto) 0.3 (0.0-0.8) K/uL Eos # (Auto) 0.0 (0.0-0.7) K/uL Baso # (Auto) 0.0 (0.0-0.1) K/uL Nucleated RBC % 0.0 /100WBC Nucleated RBCs # 0 K/uL Sodium 142 (136-145) mmol/L Potassium 3.9 (3.5-5.1) mmol/L Chloride 106 (98-107) mmol/L Carbon Dioxide 26.0 (21.0-32.0) mmol/L BUN 60 H (7.0-18.0) mg/dL Creatinine 1.6 H (0.6-1.0) mg/dL Est Cr Clr Drug Dosing 23.41 mL/min Estimated GFR (MDRD) 30.9 ml/min Glucose 103 (74-106) mg/dL Lactic Acid (0.4-2.0) mmol/L Calcium 8.9 (8.5-10.1) mg/dL Magnesium 1.9 (1.8-2.4) mg/dL Total Bilirubin 0.7 (0.2-1.0) mg/dL AST 16 (15-37) IU/L ALT 11 L (14-63) IU/L Alkaline Phosphatase 66 (46-116) U/L Troponin I < 0.050 (0.000-0.056) ng/mL B-Natriuretic Peptide 19 (<100) PG/ML Total Protein 6.9 (6.4-8.2) g/dL Albumin 3.3 L (3.4-5.0) g/dL Globulin 3.6 (2.6-4.0) g/dL Albumin/Globulin Ratio 0.9 (0.9-1.6) Lipase 76 (73-393) U/L Urine Color Urine Appearance Urine pH (5.0-8.0) Ur Specific [place] (1.001-1.035) Urine Protein (NEGATIVE) mg/dL Urine Glucose (UA) (NEGATIVE) mg/dL Urine Ketones (NEGATIVE) mg/dL Urine Occult Blood (NEGATIVE) Urine Nitrite (NEGATIVE) Urine Bilirubin (NEGATIVE) Urine Urobilinogen (<2.0) EU/dL Ur Leukocyte Esterase (NEGATIVE) U Hyaline Cast (Auto) (0-2/LPF) Urine RBC (0-2/HPF) Urine WBC (0-5/HPF) Ur Epithelial Cells (NONE-FEW) Urine Bacteria (NEGATIVE) Urine Mucus (NONE-MOD) SARS-CoV-2 RNA ([place]ICHOLE) (NEGATIVE) 12/20/20 12/20/20 12/20/20 Range/Units 21:10 21:15 22:10 WBC (4.0-11.0) K/uL RBC (4.30-5.90) M/uL Hgb (12.0-16.0) g/dL Hct (36.0-46.0) % MCV (80.0-98.0) fL MCH (27.0-32.0) pg MCHC (31.0-37.0) g/dL RDW Std Deviation (28.0-62.0) fl RDW Coeff of Arelis (11.0-15.0) % Plt Count (150-400) K/uL MPV (7.40-12.00) fL Neut % (Auto) (48.0-80.0) % Lymph % (Auto) (16.0-40.0) % [place] % (Auto) (0.0-15.0) % Eos % (Auto) (0.0-7.0) % Baso % (Auto) (0.0-1.5) % Neut # (Auto) (1.4-5.7) K/uL Lymph # (Auto) (0.6-2.4) K/uL [place] # (Auto) (0.0-0.8) K/uL Eos # (Auto) (0.0-0.7) K/uL Baso # (Auto) (0.0-0.1) K/uL Nucleated RBC % /100WBC Nucleated RBCs # K/uL Sodium (136-145) mmol/L Potassium (3.5-5.1) mmol/L Chloride (98-107) mmol/L Carbon Dioxide (21.0-32.0) mmol/L BUN (7.0-18.0) mg/dL Creatinine (0.6-1.0) mg/dL Est Cr Clr Drug Dosing mL/min Estimated GFR (MDRD) ml/min Glucose (74-106) mg/dL Lactic Acid 1.7 (0.4-2.0) mmol/L Calcium (8.5-10.1) mg/dL Magnesium (1.8-2.4) mg/dL Total Bilirubin (0.2-1.0) mg/dL AST (15-37) IU/L ALT (14-63) IU/L Alkaline Phosphatase (46-116) U/L Troponin I (0.000-0.056) ng/mL B-Natriuretic Peptide (<100) PG/ML Total Protein (6.4-8.2) g/dL Albumin (3.4-5.0) g/dL Globulin (2.6-4.0) g/dL Albumin/Globulin Ratio (0.9-1.6) Lipase (73-393) U/L Urine Color YELLOW Urine Appearance SLT CLOUDY Urine pH 5.5 (5.0-8.0) Ur Specific [place] 1.020 (1.001-1.035) Urine Protein NEGATIVE (NEGATIVE) mg/dL Urine Glucose (UA) NEGATIVE (NEGATIVE) mg/dL Urine Ketones TRACE H (NEGATIVE) mg/dL Urine Occult Blood LARGE H (NEGATIVE) Urine Nitrite NEGATIVE (NEGATIVE) Urine Bilirubin NEGATIVE (NEGATIVE) Urine Urobilinogen 0.2 (<2.0) EU/dL Ur Leukocyte Esterase SMALL H (NEGATIVE) U Hyaline Cast (Auto) 1-3 (0-2/LPF) Urine RBC 8-12 (0-2/HPF) Urine WBC 6-10 (0-5/HPF) Ur Epithelial Cells MODERATE (NONE-FEW) Urine Bacteria 4+ H (NEGATIVE) Urine Mucus LIGHT (NONE-MOD) SARS-CoV-2 RNA ([place]) NEGATIVE (NEGATIVE) Meds: Medications Generic Name Dose Route Start Last Admin Trade Name Freq PRN Reason Stop Dose Admin Sodium Chloride 1,000 mls @ 250 mls/hr 12/20/20 21:50 12/20/20 23:28 Normal Saline IV 12/21/20 01:49 250 mls/hr .Bolus ONE Administration Sodium Chloride 10 ml 12/20/20 21:10 Sodium Chloride 0.9% 10 Ml Syringe FLUSH ASDIRECTED PRN Keep Vein Open Sodium Chloride 2.5 ml 12/20/20 21:10 Sodium Chloride 0.9% 2.5 Ml Syringe FLUSH ASDIRECTED PRN Keep Vein Open Discontinued Medications Generic Name Dose Route Start Last Admin Trade Name Diana PRN Reason Stop Dose Admin Famotidine 20 mg 12/20/20 21:10 12/20/20 21:21 Famotidine 20 Mg/2 Ml Sdv IVPUSH 12/20/20 21:11 20 mg ONETIME ONE Administration Sodium Chloride 1,000 mls @ 999 mls/hr 12/20/20 21:10 12/20/20 21:21 Normal Saline IV 12/20/20 22:10 999 mls/hr .Bolus ONE Administration Ondansetron HCl 4 mg 12/20/20 21:10 12/20/20 21:21 Ondansetron 4 Mg/2 Ml Sdv IVPUSH 12/20/20 21:11 4 mg ONETIME ONE Administration - Re-Assessments/Exams Free Text/Narrative Re-Assessment/Exam: 12/20/20 21:13 We will get labs. Will treat symptomatically with Zofran, Pepcid, IV fluid bolus. Will consider CT imaging of the abdomen and pelvis depending on labs. 12/20/20 22:35 Patient's labs are remarkable for acute kidney injury. Otherwise unremarkable. I spoke with hospitalist who does agree to admit patient under her service for observation admit. She request stool studies so we will get those if patient has a bowel movement in the ER. Also request CT abdomen pelvis considering patient's age so we will get that in the ER before admitting. 12/21/20 00:31 CT without gross abnormality. Will admit Departure - Departure Time of Disposition: 00:31 Disposition: Refer to Observation Condition: Good Clinical Impression: ADARSH (acute kidney injury) - Discharge Information Referrals: Julio Hernandez MD [Primary Care Provider] - Sepsis Event Note (ED) - Focused Exam Vital Signs: Vital Signs Temp Pulse Resp BP Pulse Ox 12/21/20 00:19 98.5 F 82 18 109/62 97 12/20/20 22:30 74 18 121/67 97 12/20/20 21:01 97.8 F 75 19 139/77 98 - My Orders Last 24 Hours: My Active Orders 12/20/20 21:10 EKG Documentation Completion [RC] STAT Sodium Chloride 0.9% [Saline Flush] 10 ml FLUSH ASDIRECTED PRN Sodium Chloride 0.9% [Saline Flush] 2.5 ml FLUSH ASDIRECTED PRN Saline Lock Insert [OM.PC] Stat 12/20/20 21:11 Blood Glucose Check, Bedside [RC] ONETIME 12/20/20 21:50 Sodium Chloride 0.9% [Normal Saline] 1,000 ml IV .Bolus 12/20/20 22:33 C DIFFICILE AG/TOXIN W/REFLEX [RM] Stat OVA & PARASITES BY IMMUNOASSAY [MREF] Stat STOOL CULTURE/SHIGA TOXIN [MREF] Stat 12/21/20 00:31 Patient Status [ADT] Routine - Assessment/Plan Last 24 Hours: My Active Orders 12/20/20 21:10 EKG Documentation Completion [RC] STAT Sodium Chloride 0.9% [Saline Flush] 10 ml FLUSH ASDIRECTED PRN Sodium Chloride 0.9% [Saline Flush] 2.5 ml FLUSH ASDIRECTED PRN Saline Lock Insert [OM.PC] Stat 12/20/20 21:11 Blood Glucose Check, Bedside [RC] ONETIME 12/20/20 21:50 Sodium Chloride 0.9% [Normal Saline] 1,000 ml IV .Bolus 12/20/20 22:33 C DIFFICILE AG/TOXIN W/REFLEX [RM] Stat OVA & PARASITES BY IMMUNOASSAY [MREF] Stat STOOL CULTURE/SHIGA TOXIN [MREF] Stat 12/21/20 00:31 Patient Status [ADT] Routine
[2020-12-20] MEDS ORDERED: Famotidine 20 MG/2 ML SDV IVPUSH ONE (21:10)
[2020-12-20] MEDS ORDERED: Ondansetron 4 MG/2 ML SDV IVPUSH ONE (21:10)
[2020-12-20] MEDS ORDERED: Sodium Chloride 0.9% 1,000 ML IV ONE ×2 (21:10→21:50)
[2020-12-20] MEDS ORDERED: Sodium Chloride 0.9% 10 ML Syringe FLUSH PRN (21:10)
[2020-12-20] MEDS ORDERED: Sodium Chloride 0.9% 2.5 ML Syringe FLUSH PRN (21:10)
[2020-12-20 21:35] LABS: BLOOD UREA NITROGEN,BUN 60 mg/dL (7.0-18.0); CHLORIDE,CL 106 mmol/L (98-107); GLUCOSE RANDOM 103 mg/dL (74-106); LIPASE 76 U/L (73-393); POTASSIUM,K 3.9 mmol/L (3.5-5.1); SODIUM,NA 142 mmol/L (136-145)
--- NOTE | 2020-12-20 22:54 | CR ---
INDICATION: Dizzy TECHNIQUE: Chest radiograph 1 view COMPARISON: 11/28/2016 FINDINGS: Moderate degradation of image quality noted due to body habitus. Mediastinum: The mediastinum is normal in appearance. Moderate cardiomegaly is noted without interval change. Lung: Both lungs are unremarkable in appearance. No sign of pleural effusion seen. No pneumothorax is identified. Bone and Soft tissue: Unremarkable for age. IMPRESSION: 1. Moderate cardiomegaly is noted without interval change. Dictated by Harish Rodriguez MD @ 12/20/2020 10:52:58 PM Dictated by: Harish Rodriguez MD @ 12/20/2020 22:53:03 (Electronically Signed)
--- NOTE | 2020-12-21 00:25 | CT ---
INDICATION: Nausea, vomiting, diarrhea TECHNIQUE: CT Abdomen and pelvis without i.v. contrast. Coronal and sagittal reformats were obtained. COMPARISON: 11/28/2016 FINDINGS: Lower chest: Unremarkable. A small pericardial effusion is present. Liver: Unremarkable. Spleen: Unremarkable. Pancreas: Unremarkable. Gallbladder: Previous cholecystectomy noted without significant intra- or extrahepatic biliary ductal dilatation seen. Kidney: Scattered punctate intrarenal stones are present bilaterally. Cortical scarring is seen in the upper poles of both kidneys. There is a low-density lesion in the midzone of the left kidney that measures 4.8 cm in several small lesions in the upper pole of the right kidney are present measuring up to 0.8 cm. These are incompletely characterized without the use of intravenous contrast. Adrenal: Unremarkable. Bowel: Unremarkable. The appendix is normal in appearance and size. Vascular: Unremarkable. Lymph: Unremarkable. Peritoneum: Unremarkable. No pneumoperitoneum is seen. No significant ascites is noted. Pelvis: Small amount of gas is present in the bladder. There is a well-circumscribed cystic lesion present in the right adnexa without significant interval change, measuring 7.4 x 5.6 cm. Soft tissue: Unremarkable. Bone: Moderate dextroscoliosis is noted with associated facet arthritis and degenerative disc disease. IMPRESSIONS: 1. Small amount of gas is present in the bladder. This is likely due to recent bladder instrumentation but in the absence of this history, a gas forming urinary tract infection should be considered. 2. There is a well-circumscribed cystic lesion present in the right adnexa without significant interval change, measuring 7.4 x 5.6 cm. This may represent a cystic ovarian neoplasm. Dictated by Harish Rodriguez MD @ 12/21/2020 12:23:57 AM Please note that all CT scans at this facility use dose modulation, iterative reconstruction, and/or weight-based dosing when appropriate to reduce radiation dose to as low as reasonably achievable. Dictated by: Harish Rodriguez MD @ 12/21/2020 00:24:03 (Electronically Signed)
[2020-12-21] MEDS ORDERED: Albuterol/Ipratropium 3.0-0.5 MG/3 ML Neb Soln NEB PRN (00:32)
[2020-12-21] MEDS ORDERED: Acetaminophen 325 MG Tab PO PRN (00:32)
[2020-12-21] MEDS ORDERED: Ondansetron 4 MG/2 ML SDV IVPUSH PRN (00:32)
[2020-12-21] MEDS ORDERED: Lactated Ringers 1,000 ML IV SCH (00:45)
[2020-12-21] MEDS ORDERED: cefTRIAXone 1 GM in Sodium Chloride 0.9% 50 ML IV SCH (00:45)
[2020-12-21 06:00] LABS: CARBON DIOXIDE,CO2 24.1 mmol/L (21.0-32.0); POTASSIUM,K 3.7 mmol/L (3.5-5.1)
[2020-12-21] MEDS ORDERED: Sodium Chloride 0.9% 2.5 ML Syringe FLUSH PRN (08:28)
--- NOTE | 2020-12-21 08:33 | PCM.HP.2 ---
H&P History of Present Illness - General Date of Service: 12/21/20 Admit Problem/Dx: Admission Diagnosis/Problem Admission Diagnosis/Problem Acute kidney injury Source of Information: Patient, Old Records History Limitations: Reports: No Limitations - History of Present Illness Initial Comments - Free Text/Narative: This 78-year female with past medical history of hypertension, dementia presented to the ER with generalized weakness and otherwise feeling sick. She reports for the last 2 days she has been experiencing nausea vomiting and diarrhea. She denies any black bloody stools and no bloody emesis. Denies any recent travel. Denies any recent antibiotic use. She denies any abdominal pain flank pain or dysuria frequency urgency. She reports that she is feeling dizzy and otherwise weak especially when she is up moving. Denies any chest pain palpitations or shortness of breath. Pain dementia plays well and limited complaints. Daughter reports that another daughter felt her stool looked more black in color no overt bleeding. Today patient is doing much improved is denies any more stools. She reports she did smoke and use alcohol approximately 50 years ago. No recreational drug use. She reports she did have a hysterectomy which was found to have some cancerous source to it family is unsure but she did not need any chemotherapy. In the ER CBC stable. Sodium 142 potassium 3.9. BUN elevated at 60 creatinine 1.6 baseline appears to be 1.2-1.44 creatinine. Baseline BUN is around 20. Troponin negative UA reveals large occult blood negative nitrite small leukocyte esterase WBC 6-10 moderate epithelial cells bacteria +4. Covid swab negative. Chest x-ray obtained which reveals moderate cardiomegaly with no interval change. CT abdomen pelvis obtained which shows small glass burden of bladder, well-circumscribed cystic lesion present in the right adnexa without significant interval change measuring 7.4 x 5.6 cm. Kidney reveals scattered punctate intrarenal stones that are present bilaterally scarring noted in upper poles of both kidneys low-density lesion in the mid zone the left kidney measuring 4.8 cm and several small lesions in the upper pole the right kidney these are incompletely characterized without the use of IV contrast. In the ER she was treated with Rocephin Zofran and 2 L IV fluids. She was also given Pepcid. EKG in the ER sinus rhythm rate [address] T waves, no signs of ischemic changes. Multiple PVCs are noted to be admitted observation for diarrhea with ADARSH. Did discuss with family regarding discharged home. They would like to explore possible rehabilitation if PT feels this is necessary. She otherwise is needing almost nearly 24-hour care due to her dementia and other needs at home. Patient and family counseled that currently [facility] is no longer open for new admissions until [facility] has been renovated. They would like to evaluate and see how PT feels consider home with home health and caregivers until [facility] is open. - Related Data Allergies/Adverse Reactions: Allergies Allergy/AdvReac Type Severity Reaction Status Date / Time No Known Allergies Allergy Verified 12/21/20 01:33 Home Medications: Home Meds Levothyroxine [Synthroid] 88 mcg PO DAILY 08/10/14 [History] Losartan/Hydrochlorothiazide [Losartan-HCTZ 100-25 MG] 1 tab PO DAILY 08/10/14 [History] Aspirin 81 mg PO DAILY 12/20/20 [History] Potassium Chloride 10 meq PO DAILY 12/20/20 [History] Memantine HCl [Memantine HCl ER] 14 mg PO DAILY 12/21/20 [History] Past Medical History HEENT History: Reports: None Other HEENT History: wears glasses Cardiovascular History: Reports: Hypertension Other Cardiovascular History: Pt complains of chest pain, son of pt reported it's been going on for 4 days now but pt stated the pain worsen this morning that it got up into her left shouylder blade. Pt claimed no history of chest p ain. 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 Endocrine/Metabolic History: Reports: Hyperthyroidism - Infectious Disease History Infectious Disease History: Reports: Chicken Pox - Past Surgical History HEENT Surgical History: Reports: Tonsillectomy Cardiovascular Surgical History: Reports: None GI Surgical History: Reports: Cholecystectomy, Colonoscopy Female Surgical History: Reports: Hysterectomy Endocrine Surgical History: Reports: None Musculoskeletal Surgical History: Reports: None Social & Family History - Family History Family Medical History: No Pertinent Family History Cardiac: Reports: Hypertension Neurological: Reports: Alzheimers Disease - Tobacco Use Tobacco Use Status *Q: Never Tobacco User Second Hand Smoke Exposure: No - Caffeine Use Caffeine Use: Reports: Coffee Caffeine Use Comment: 1cup/day - Recreational Drug Use Recreational Drug Use: No H&P Review of Systems - Review of Systems: Review Of Systems: See Below General: Reports: Chills, Malaise, Weakness, Fatigue HEENT: Denies: Headaches, Sinus Congestion, Sore Throat, Vertigo Pulmonary: Reports: No Symptoms. Denies: Shortness of Breath Cardiovascular: Reports: No Symptoms. Denies: Chest Pain Gastrointestinal: Reports: Abdominal Pain (Lower abdominal pain no longer there), Diarrhea, Nausea. Denies: Vomiting Genitourinary: Reports: No Symptoms. Denies: Dysuria, Frequency, Burning Skin: Reports: No Symptoms Psychiatric: Reports: No Symptoms Neurological: Reports: No Symptoms Hematologic/Lymphatic: Reports: No Symptoms Immunologic: Reports: No Symptoms Exam - Exam Exam: See Below - Vital Signs Vital Signs: Last Vital Signs Temp 97.6 F 12/21/20 07:45 Pulse 71 12/21/20 07:45 Resp 17 12/21/20 07:45 BP 111/59 L 12/21/20 07:45 Pulse Ox 95 12/21/20 07:45 Weight: 88.5 kg - Exam General: Alert. No: Oriented (Has moments of near complete orientation but at times has troubles remembering remote events or recent events.) HEENT: Conjunctiva Clear, Mucosa Moist & [place], Posterior Pharynx Clear Lungs: Clear to Auscultation, Normal Respiratory Effort Cardiovascular: Regular Rate, Regular Rhythm GI/Abdominal Exam: Normal Bowel Sounds, Soft, Non-Tender Back Exam: Normal Inspection, Full Range of Motion. No: CVA Tenderness (L), CVA Tenderness (R) Extremities: Normal Inspection, Normal Range of Motion, Non-Tender, No Pedal Edema Neuro Extensive - Mental Status: Alert, Normal Mood/Affect. No: Oriented x3 Neuro Extensive - Motor, Sensory, Reflexes: CN II-XII Intact Psychiatric: Alert, Normal Affect, Normal Mood - Patient Data Lab Results Last 24 hrs: Laboratory Results - last 24 hr 12/20/20 12/20/20 12/20/20 Range/Units 21:00 21:00 21:00 WBC 7.64 (4.0-11.0) K/uL RBC 4.10 L (4.30-5.90) M/uL Hgb 12.7 (12.0-16.0) g/dL Hct 38.0 (36.0-46.0) % MCV 92.7 (80.0-98.0) fL MCH 31.0 (27.0-32.0) pg MCHC 33.4 (31.0-37.0) g/dL RDW Std Deviation 45.2 (28.0-62.0) fl RDW Coeff of Arelis 13 (11.0-15.0) % Plt Count 242 (150-400) K/uL MPV 10.10 (7.40-12.00) fL Neut % (Auto) 83.5 H (48.0-80.0) % Lymph % (Auto) 11.8 L (16.0-40.0) % [place] % (Auto) 4.5 (0.0-15.0) % Eos % (Auto) 0.1 (0.0-7.0) % Baso % (Auto) 0.1 (0.0-1.5) % Neut # (Auto) 6.4 H (1.4-5.7) K/uL Lymph # (Auto) 0.9 (0.6-2.4) K/uL [place] # (Auto) 0.3 (0.0-0.8) K/uL Eos # (Auto) 0.0 (0.0-0.7) K/uL Baso # (Auto) 0.0 (0.0-0.1) K/uL Nucleated RBC % 0.0 /100WBC Nucleated RBCs # 0 K/uL Sodium 142 (136-145) mmol/L Potassium 3.9 (3.5-5.1) mmol/L Chloride 106 (98-107) mmol/L Carbon Dioxide 26.0 (21.0-32.0) mmol/L BUN 60 H (7.0-18.0) mg/dL Creatinine 1.6 H (0.6-1.0) mg/dL Est Cr Clr Drug Dosing 23.41 mL/min Estimated GFR (MDRD) 30.9 ml/min Glucose 103 (74-106) mg/dL Lactic Acid (0.4-2.0) mmol/L Calcium 8.9 (8.5-10.1) mg/dL Phosphorus (2.6-4.7) mg/dL Magnesium 1.9 (1.8-2.4) mg/dL Total Bilirubin 0.7 (0.2-1.0) mg/dL AST 16 (15-37) IU/L ALT 11 L (14-63) IU/L Alkaline Phosphatase 66 (46-116) U/L Troponin I < 0.050 (0.000-0.056) ng/mL B-Natriuretic Peptide 19 (<100) PG/ML Total Protein 6.9 (6.4-8.2) g/dL Albumin 3.3 L (3.4-5.0) g/dL Globulin 3.6 (2.6-4.0) g/dL Albumin/Globulin Ratio 0.9 (0.9-1.6) Lipase 76 (73-393) U/L Urine Color Urine Appearance Urine pH (5.0-8.0) Ur Specific [place] (1.001-1.035) Urine Protein (NEGATIVE) mg/dL Urine Glucose (UA) (NEGATIVE) mg/dL Urine Ketones (NEGATIVE) mg/dL Urine Occult Blood (NEGATIVE) Urine Nitrite (NEGATIVE) Urine Bilirubin (NEGATIVE) Urine Urobilinogen (<2.0) EU/dL Ur Leukocyte Esterase (NEGATIVE) U Hyaline Cast (Auto) (0-2/LPF) Urine RBC (0-2/HPF) Urine WBC (0-5/HPF) Ur Epithelial Cells (NONE-FEW) Urine Bacteria (NEGATIVE) Urine Mucus (NONE-MOD) SARS-CoV-2 RNA (NICHOLE) (NEGATIVE) 12/20/20 12/20/20 12/20/20 Range/Units 21:10 21:15 22:10 WBC (4.0-11.0) K/uL RBC (4.30-5.90) M/uL Hgb (12.0-16.0) g/dL Hct (36.0-46.0) % MCV (80.0-98.0) fL MCH (27.0-32.0) pg MCHC (31.0-37.0) g/dL RDW Std Deviation (28.0-62.0) fl RDW Coeff of Arelis (11.0-15.0) % Plt Count (150-400) K/uL MPV (7.40-12.00) fL Neut % (Auto) (48.0-80.0) % Lymph % (Auto) (16.0-40.0) % [place] % (Auto) (0.0-15.0) % Eos % (Auto) (0.0-7.0) % Baso % (Auto) (0.0-1.5) % Neut # (Auto) (1.4-5.7) K/uL Lymph # (Auto) (0.6-2.4) K/uL [place] # (Auto) (0.0-0.8) K/uL Eos # (Auto) (0.0-0.7) K/uL Baso # (Auto) (0.0-0.1) K/uL Nucleated RBC % /100WBC Nucleated RBCs # K/uL Sodium (136-145) mmol/L Potassium (3.5-5.1) mmol/L Chloride (98-107) mmol/L Carbon Dioxide (21.0-32.0) mmol/L BUN (7.0-18.0) mg/dL Creatinine (0.6-1.0) mg/dL Est Cr Clr Drug Dosing mL/min Estimated GFR (MDRD) ml/min Glucose (74-106) mg/dL Lactic Acid 1.7 (0.4-2.0) mmol/L Calcium (8.5-10.1) mg/dL Phosphorus (2.6-4.7) mg/dL Magnesium (1.8-2.4) mg/dL Total Bilirubin (0.2-1.0) mg/dL AST (15-37) IU/L ALT (14-63) IU/L Alkaline Phosphatase (46-116) U/L Troponin I (0.000-0.056) ng/mL B-Natriuretic Peptide (<100) PG/ML Total Protein (6.4-8.2) g/dL Albumin (3.4-5.0) g/dL Globulin (2.6-4.0) g/dL Albumin/Globulin Ratio (0.9-1.6) Lipase (73-393) U/L Urine Color YELLOW Urine Appearance SLT CLOUDY Urine pH 5.5 (5.0-8.0) Ur Specific [place] 1.020 (1.001-1.035) Urine Protein NEGATIVE (NEGATIVE) mg/dL Urine Glucose (UA) NEGATIVE (NEGATIVE) mg/dL Urine Ketones TRACE H (NEGATIVE) mg/dL Urine Occult Blood LARGE H (NEGATIVE) Urine Nitrite NEGATIVE (NEGATIVE) Urine Bilirubin NEGATIVE (NEGATIVE) Urine Urobilinogen 0.2 (<2.0) EU/dL Ur Leukocyte Esterase SMALL H (NEGATIVE) U Hyaline Cast (Auto) 1-3 (0-2/LPF) Urine RBC 8-12 (0-2/HPF) Urine WBC 6-10 (0-5/HPF) Ur Epithelial Cells MODERATE (NONE-FEW) Urine Bacteria 4+ H (NEGATIVE) Urine Mucus LIGHT (NONE-MOD) SARS-CoV-2 RNA (NICHOLE) NEGATIVE (NEGATIVE) 12/21/20 12/21/20 Range/Units 04:53 04:53 WBC 4.83 (4.0-11.0) K/uL RBC 3.16 L (4.30-5.90) M/uL Hgb 9.7 L (12.0-16.0) g/dL Hct 29.4 L (36.0-46.0) % MCV 93.0 (80.0-98.0) fL MCH 30.7 (27.0-32.0) pg MCHC 33.0 (31.0-37.0) g/dL RDW Std Deviation 46.0 (28.0-62.0) fl RDW Coeff of Arelis 14 (11.0-15.0) % Plt Count 199 (150-400) K/uL MPV 10.40 (7.40-12.00) fL Neut % (Auto) 64.7 (48.0-80.0) % Lymph % (Auto) 24.6 (16.0-40.0) % [place] % (Auto) 9.7 (0.0-15.0) % Eos % (Auto) 0.8 (0.0-7.0) % Baso % (Auto) 0.2 (0.0-1.5) % Neut # (Auto) 3.1 (1.4-5.7) K/uL Lymph # (Auto) 1.2 (0.6-2.4) K/uL [place] # (Auto) 0.5 (0.0-0.8) K/uL Eos # (Auto) 0.0 (0.0-0.7) K/uL Baso # (Auto) 0.0 (0.0-0.1) K/uL Nucleated RBC % 0.0 /100WBC Nucleated RBCs # 0 K/uL Sodium 145 (136-145) mmol/L Potassium 3.7 (3.5-5.1) mmol/L Chloride 109 H (98-107) mmol/L Carbon Dioxide 24.1 (21.0-32.0) mmol/L BUN 52 H (7.0-18.0) mg/dL Creatinine 1.5 H (0.6-1.0) mg/dL Est Cr Clr Drug Dosing 28.12 mL/min Estimated GFR (MDRD) 33.2 ml/min Glucose 86 (74-106) mg/dL Lactic Acid (0.4-2.0) mmol/L Calcium 8.4 L (8.5-10.1) mg/dL Phosphorus 3.4 (2.6-4.7) mg/dL Magnesium 1.7 L (1.8-2.4) mg/dL Total Bilirubin (0.2-1.0) mg/dL AST (15-37) IU/L ALT (14-63) IU/L Alkaline Phosphatase (46-116) U/L Troponin I (0.000-0.056) ng/mL B-Natriuretic Peptide (<100) PG/ML Total Protein (6.4-8.2) g/dL Albumin (3.4-5.0) g/dL Globulin (2.6-4.0) g/dL Albumin/Globulin Ratio (0.9-1.6) Lipase (73-393) U/L Urine Color Urine Appearance Urine pH (5.0-8.0) Ur Specific [place] (1.001-1.035) Urine Protein (NEGATIVE) mg/dL Urine Glucose (UA) (NEGATIVE) mg/dL Urine Ketones (NEGATIVE) mg/dL Urine Occult Blood (NEGATIVE) Urine Nitrite (NEGATIVE) Urine Bilirubin (NEGATIVE) Urine Urobilinogen (<2.0) EU/dL Ur Leukocyte Esterase (NEGATIVE) U Hyaline Cast (Auto) (0-2/LPF) Urine RBC (0-2/HPF) Urine WBC (0-5/HPF) Ur Epithelial Cells (NONE-FEW) Urine Bacteria (NEGATIVE) Urine Mucus (NONE-MOD) SARS-CoV-2 RNA (NICHOLE) (NEGATIVE) Result Diagrams: 12/21/20 04:53 12/21/20 04:53 Sepsis Event Note - Evaluation Sepsis Screening Result: No Definite Risk - Focused Exam Vital Signs: Vital Signs Temp Pulse Resp BP Pulse Ox 12/21/20 07:45 97.6 F 71 17 111/59 L 95 12/21/20 05:00 99.1 F 71 16 127/61 96 12/21/20 01:00 98.0 F 76 16 116/74 97 12/21/20 00:19 98.5 F 82 18 109/62 97 12/20/20 22:30 74 18 121/67 97 12/20/20 21:01 97.8 F 75 19 139/77 98 - Problem List (1) Diarrhea SNOMED Code(s): 10947852 ICD Code: R19.7 - DIARRHEA, UNSPECIFIED Status: Acute Current Visit: Yes Qualifiers: Diarrhea type: unspecified type Qualified Code(s): R19.7 - Diarrhea, u nspecified (2) ADARSH (acute kidney injury) SNOMED Code(s): 23577074, 47451938 ICD Code: N17.9 - ACUTE KIDNEY FAILURE, UNSPECIFIED Status: Acute Current Visit: Yes (3) Dehydration SNOMED Code(s): 11354841 ICD Code: E86.0 - DEHYDRATION Status: Acute Current Visit: Yes (4) Dementia SNOMED Code(s): 80478914 ICD Code: F03.90 - UNSPECIFIED DEMENTIA WITHOUT BEHAVIORAL DISTURBANCE Status: Chronic Current Visit: Yes Qualifiers: Dementia type: Alzheimer's (5) Hypothyroidism SNOMED Code(s): 87059861 ICD Code: E03.9 - HYPOTHYROIDISM, UNSPECIFIED Status: Chronic Current Visit: Yes (6) Generalized weakness SNOMED Code(s): 47618744 ICD Code: R53.1 - WEAKNESS Status: Acute Current Visit: Yes (7) UTI (urinary tract infection) SNOMED Code(s): 58928972 ICD Code: N39.0 - URINARY TRACT INFECTION, SITE NOT SPECIFIED Status: Acute Current Visit: Yes Qualifiers: Urinary tract infection type: acute cystitis (8) HTN (hypertension) SNOMED Code(s): 74471038 ICD Code: I10 - ESSENTIAL (PRIMARY) HYPERTENSION Status: Chronic Current Visit: Yes Qualifiers: Hypertension type: essential hypertension Qualified Code(s): I10 - [place] l (primary) hypertension Problem List Initiated/Reviewed/Updated: Yes Orders Last 24hrs: Active Orders 24 hr Category Date Time Status Patient Status [ADT] Routine ADT 12/21/20 00:31 Active Ambulate [RC] ASDIRECTED Care 12/21/20 00:32 Active Antiembolic Devices [RC] PER UNIT ROUTINE Care 12/21/20 00:32 Active Blood Glucose Check, Bedside [RC] ONETIME Care 12/20/20 21:11 Active Oxygen Therapy [RC] PRN Care 12/21/20 00:32 Active Pulse Oximetry [RC] PRN Care 12/21/20 00:32 Active RT Aerosol Therapy [RC] ASDIRECTED Care 12/21/20 00:34 Active VTE/DVT Education [RC] Q12H Care 12/21/20 00:32 Active Vital Signs [RC] Q4H Care 12/21/20 00:32 Active Heart Healthy Diet [DIET] Diet 12/21/20 Breakfast Active C DIFFICILE AG/TOXIN W/REFLEX [RM] Stat Lab 12/20/20 22:33 Ordered CULTURE URINE [MREF] Stat Lab 12/21/20 00:31 Received OVA & PARASITES BY IMMUNOASSAY [MREF] Stat Lab 12/20/20 22:33 Ordered STOOL CULTURE/SHIGA TOXIN [MREF] Stat Lab 12/20/20 22:33 Ordered Acetaminophen [TylenoL] Med 12/21/20 00:32 Active 650 mg PO Q4H PRN Albuterol/Ipratropium [DuoNeb 3.0-0.5 MG/3 ML] Med 12/21/20 00:32 Active 3 ml NEB Q4HRRT PRN Lactated Ringers [Ringers, Lactated] 1,000 ml Med 12/21/20 00:45 Active IV ASDIRECTED Ondansetron [Zofran] Med 12/21/20 00:32 Active 4 mg IVPUSH Q4H PRN Pantoprazole [ProTONIX IV] 40 mg Med 12/21/20 09:00 Active Sodium Chloride 0.9% [Normal Saline] 10 ml IV DAILY Sodium Chloride 0.9% [Saline Flush] Med 12/20/20 21:10 Active 10 ml FLUSH ASDIRECTED PRN Sodium Chloride 0.9% [Saline Flush] Med 12/20/20 21:10 Active 2.5 ml FLUSH ASDIRECTED PRN cefTRIAXone [Rocephin in Dextrose,Iso-Osm 1 GM/50 ML] 1 Med 12/22/20 01:30 Active gm Premix Bag 1 bag IV Q24H Saline Lock Insert [OM.PC] Stat Oth 12/20/20 21:10 Ordered Sequential Compression Device [OM.PC] Per Unit Routine Oth 12/21/20 00:32 Ordered Medication Orders Acetaminophen (Acetaminophen 325 Mg Tab) 650 mg PO Q4H PRN PRN Reason: Pain (Mild 1-3)/fever Albuterol/Ipratropium (Albuterol/Ipratropium 3.0-0.5 Mg/3 Ml Neb Soln) 3 ml NEB Q4HRRT PRN PRN Reason: Shortness Of Breath/wheezing Lactated Ringer's (Ringers, Lactated) 1,000 mls @ 125 mls/hr IV ASDIRECTED FANNY Last Admin: 12/21/20 04:19 Dose: 125 mls/hr Documented by: SHARI Pantoprazole Sodium 40 mg/ (Sodium Chloride) 10 mls @ 300 mls/hr IV DAILY FANNY Ceftriaxone Sodium/Dextrose 1 (gm/ Premix) 50 mls @ 100 mls/hr IV Q24H FANNY Ondansetron HCl (Ondansetron 4 Mg/2 Ml Sdv) 4 mg IVPUSH Q4H PRN PRN Reason: Nausea/Vomiting Sodium Chloride (Sodium Chloride 0.9% 10 Ml Syringe) 10 ml FLUSH ASDIRECTED PRN PRN Reason: Keep Vein Open Sodium Chloride (Sodium Chloride 0.9% 2.5 Ml Syringe) 2.5 ml FLUSH ASDIRECTED PRN PRN Reason: Keep Vein Open Assessment/Plan Comment:: This 80-year-old female admitted with ADARSH, diarrhea and generalized weakness 1. ADARSH -Continue gentle IV fluids -Hold losartan hydrochlorothiazide -Avoid nephrotoxic medications 2. Diarrhea -Stool studies ordered -Monitor closely and replete electrolytes as needed 3. Generalized weakness -Likely secondary to acute illness -Consult PT to evaluate and treat 4. UTI - Continue Rocephin - UC pending 5. Alzheimer's/hypothyroidism/HTN -Continue Namenda -Continue levothyroxine -Holding losartan hydrochlorothiazide we will hold aspirin as family reported black stool, patient denies this 6. Ovarian cyst/lesion -We will have referral sent for outpatient [facility] [employer] consultation - Patient does have history of hysterectomy with cancer per family approximately 50 years ago denies need for chemotherapy at that time. VTE prophylaxis: SCDs and ambulation GI prophylaxis: Protonix CODE STATUS: DNR/DNI as verified with patient Dispo: Transition to inpatient as she will likely need greater than 2 midnight stay - Mortality Measure Prognosis:: Good
[2020-12-21] MEDS ORDERED: Pantoprazole 40 MG in Sodium Chloride 0.9% 10 ML IV SCH (09:00)
[2020-12-21] MEDS ORDERED: Aspirin 81 MG Tab.Chew PO SCH (09:00)
[2020-12-21] MEDS: MEMANTINE 14 MG PO SCH (11:44)
[2020-12-21] MEDS: Levothyroxine 88 MCG Tab PO SCH (11:44)
[2020-12-21] MEDS: Lactated Ringers 1,000 ML IV SCH (14:51)
[2020-12-21] MEDS ORDERED: LORazepam 2 MG/ML SDV ONE (23:36)
[2020-12-21] MEDS ORDERED: LORazepam 2 MG/ML SDV IVPUSH ONE (23:43)
[2020-12-22] MEDS ORDERED: cefTRIAXone 1 GM in Premix Bag 1 BAG IV SCH ×4 (01:30)
[2020-12-22] MEDS ORDERED: Lactated Ringers 500 ML IV ONE (03:29)
[2020-12-22] MEDS ORDERED: Pantoprazole 40 MG in Sodium Chloride 0.9% 10 ML IV SCH (03:32)
[2020-12-22] MEDS ORDERED: Pantoprazole 40 MG Vial ONE ×2 (03:41→05:28)
[2020-12-22 04:08] LABS: CARBON DIOXIDE,CO2 23.5 mmol/L (21.0-32.0); POTASSIUM,K 3.4 mmol/L (3.5-5.1)
[2020-12-22] MEDS: Lactated Ringers 1,000 ML IV SCH (04:17)
[2020-12-22] MEDS ORDERED: Pantoprazole 80 MG in Sodium Chloride 0.9% 100 ML IV SCH ×2 (05:15→09:00)
[2020-12-22] MEDS ORDERED: Lactated Ringers 1,000 ML IV ONE (05:21)
[2020-12-22] MEDS: Levothyroxine 88 MCG Tab PO SCH (08:52)
[2020-12-22] MEDS: MEMANTINE 14 MG PO SCH (09:22)
--- NOTE | 2020-12-22 09:45 | PCM.DCSUM1 ---
Discharge Summary - Hospital Course Brief History: This 78-year female with past medical history of hypertension, dementia presented to the ER with generalized weakness and otherwise feeling sick. She reports for the last 2 days she has been experiencing nausea vomiting and diarrhea. She denies any black bloody stools and no bloody emesis. Denies any recent travel. Denies any recent antibiotic use. She denies any abdominal pain flank pain or dysuria frequency urgency. She reports that she is feeling dizzy and otherwise weak especially when she is up moving. Denies any chest pain palpitations or shortness of breath. Pain dementia plays well and limited complaints. Daughter reports that another daughter felt her stool looked more black in color no overt bleeding. Today patient is doing much improved is denies any more stools. She reports she did smoke and use alcohol approximately 50 years ago. No recreational drug use. She reports she did have a hysterectomy which was found to have some cancerous source to it family is unsure but she did not need any chemotherapy. In the ER CBC stable. Sodium 142 potassium 3.9. BUN elevated at 60 creatinine 1.6 baseline appears to be 1.2- 1.44 creatinine. Baseline BUN is around 20. Troponin negative UA reveals large occult blood negative nitrite small leukocyte esterase WBC 6-10 moderate epithelial cells bacteria +4. Covid swab negative. Chest x-ray obtained which reveals moderate cardiomegaly with no interval change. CT abdomen pelvis obtain ed which shows small glass burden of bladder, well-circumscribed cystic lesion present in the right adnexa without significant interval change measuring 7.4 x 5.6 cm. Kidney reveals scattered punctate intrarenal stones that are present bilaterally scarring noted in upper poles of both kidneys low-density lesion in the mid zone the left kidney measuring 4.8 cm and several small lesions in the upper pole the right kidney these are incompletely characterized without the use of IV contrast. In the ER she was treated with Rocephin Zofran and 2 L IV fluids. She was also given Pepcid. EKG in the ER sinus rhythm rate [address] T waves, no signs of ischemic changes. Multiple PVCs are noted to be admitted observation for diarrhea with ADARSH. Did discuss with family regarding discharged home. They would like to explore possible rehabilitation if PT feels this is necessary. She otherwise is needing almost nearly 24-hour care due to her dementia and other needs at home. Patient and family counseled that currently [facility] is no longer open for new admissions until [facility] has been renovated. They would like to evaluate and see how PT feels consider home with home health and caregivers until [facility] is open. - Discharge Data Discharge Date: 12/22/20 Discharge Disposition: DC/Tfer to Acute Hospital 02 Condition: Stable - Referral to Home Health Primary Care Physician: Julio Hernandez MD - Discharge Diagnosis/Problem(s) (1) Diarrhea SNOMED Code(s): 42463799 ICD Code: R19.7 - DIARRHEA, UNSPECIFIED Status: Acute Current Visit: Yes Qualifiers: Diarrhea type: unspecified type Qualified Code(s): R19.7 - Diarrhea, unspecified (2) ADARSH (acute kidney injury) SNOMED Code(s): 94737763, 99171211 ICD Code: N17.9 - ACUTE KIDNEY FAILURE, UNSPECIFIED Status: Acute Current Visit: Yes (3) Dehydration SNOMED Code(s): 80854946 ICD Code: E86.0 - DEHYDRATION Status: Acute Current Visit: Yes (4) Dementia SNOMED Code(s): 22234233 ICD Code: F03.90 - UNSPECIFIED DEMENTIA WITHOUT BEHAVIORAL DISTURBANCE Status: Chronic Current Visit: Yes Qualifiers: Dementia type: Alzheimer's (5) Hypothyroidism SNOMED Code(s): 09379350 ICD Code: E03.9 - HYPOTHYROIDISM, UNSPECIFIED Status: Chronic Current Visit: Yes (6) Generalized weakness SNOMED Code(s): 41319917 ICD Code: R53.1 - WEAKNESS Status: Acute Current Visit: Yes (7) UTI (urinary tract infection) SNOMED Code(s): 15482843 ICD Code: N39.0 - URINARY TRACT INFECTION, SITE NOT SPECIFIED Status: Acute Current Visit: Yes Qualifiers: Urinary tract infection type: acute cystitis (8) HTN (hypertension) SNOMED Code(s): 77646777 ICD Code: I10 - ESSENTIAL (PRIMARY) HYPERTENSION Status: Chronic Current Visit: Yes Qualifiers: Hypertension type: essential hypertension Qualified Code(s): I10 - Essential (primary) hypertension (9) Upper GI bleed SNOMED Code(s): 43605015 ICD Code: K92.2 - GASTROINTESTINAL HEMORRHAGE, UNSPECIFIED Status: Acute Current Visit: Yes - Patient Summary/Data Consults: Consultations 12/21/20 08:34 PT Evaluation and Treatment [CONS] Routine Hospital Course: Admission Diagnoses: N/V Diarrhea ADARSH UTI Discharge Diagnoses Upper GI bleed N/V Diarrhea ADARSH UTI Other PMH Dementia Hypertension Hypothyroidism Anca was admitted secondary N/V diarrhea, she was treated with IV antibiotics for UTI and symptom relief. Patient was feeling improved yesterday. Overnight patient become very nauseated and vomited large amount of blood with clots. Hgb at that time 8.0, BP did become hypotensive slightly 94/50, but with fluids and blood blood pressure has improved to 115/58. Patient otherwise stable currently slightly nauseated. She was started on protonix drip after loading dose and is currently receiving unit 2 of blood. SPoke with Dr Chun, general surgeon, who recommended transfer to higher level of care due to that fact that if patient is actively bleeding we are unable to stop the bleeding with EGD in our facility. I spoke with patient family, Piyush, daughter was contacted and notified of patient condition and the recommendation for transfer. Patient and daughter verbalized understanding and agree with transfer. I spoke with Hospitalist at [facility] Dr Oquendo who has kindly accepted patient for transfer. Patient will be transferred via helicopter to [facility] in [place]. Dr Valles updated on plan. - Patient Instructions Diet: NPO - Discharge Plan *PRESCRIPTION DRUG MONITORING PROGRAM REVIEWED*: Not Applicable *COPY OF PRESCRIPTION DRUG MONITORING REPORT IN PATIENT LIZA: Not Applicable Home Medications: Home Meds Levothyroxine [Synthroid] 88 mcg PO DAILY 08/10/14 [History] Losartan/Hydrochlorothiazide [Losartan-HCTZ 100-25 MG] 1 tab PO DAILY 08/10/14 [History] Aspirin 81 mg PO DAILY 12/20/20 [History] Potassium Chloride 10 meq PO DAILY 12/20/20 [History] Memantine HCl [Memantine HCl ER] 14 mg PO DAILY 12/21/20 [History] Oxygen Therapy Mode: Room Air Patient Handouts: Acute Kidney Injury, Adult Referrals: Julio Hernandez MD [Primary Care Provider] - 12/28/20 8:30 am Alicia Bellamy MD [Physician] - 01/07/21 12:45 pm - Discharge Summary/Plan Comment DC Time >30 min.: No - Patient Data Vitals - Most Recent: Last Vital Signs Temp 98.2 F 06/23/21 09:03 Pulse 82 12/22/20 09:03 Resp 20 12/22/20 09:03 BP 115/58 L 12/22/20 09:03 Pulse Ox 95 12/22/20 09:03 Weight - Most Recent: 90.446 kg I&O - Last 24 hours: Intake & Output 12/21/20 12/22/20 12/22/20 22:59 06:59 14:59 Intake Total 2284 277 256 Output Total 520 1550 Balance 1764 -1273 256 Lab Results - Last 24 hrs: Laboratory Results - last 24 hr 12/22/20 12/22/20 12/22/20 Range/Units 03:21 03:35 03:35 WBC 8.60 (4.0-11.0) K/uL RBC 2.59 L (4.30-5.90) M/uL Hgb 8.0 L (12.0-16.0) g/dL Hct 24.4 L (36.0-46.0) % MCV 94.2 (80.0-98.0) fL MCH 30.9 (27.0-32.0) pg MCHC 32.8 (31.0-37.0) g/dL RDW Std Deviation 46.8 (28.0-62.0) fl RDW Coeff of Arelis 14 (11.0-15.0) % Plt Count 243 (150-400) K/uL MPV 10.00 (7.40-12.00) fL Neut % (Auto) 46.5 L (48.0-80.0) % Lymph % (Auto) 42.0 H (16.0-40.0) % [place] % (Auto) 8.4 (0.0-15.0) % Eos % (Auto) 2.6 (0.0-7.0) % Baso % (Auto) 0.5 (0.0-1.5) % Neut # (Auto) 4.0 (1.4-5.7) K/uL Lymph # (Auto) 3.6 H (0.6-2.4) K/uL [place] # (Auto) 0.7 (0.0-0.8) K/uL Eos # (Auto) 0.2 (0.0-0.7) K/uL Baso # (Auto) 0.0 (0.0-0.1) K/uL Nucleated RBC % 0.0 /100WBC Nucleated RBCs # 0 K/uL Sodium 145 (136-145) mmol/L Potassium 3.4 L (3.5-5.1) mmol/L Chloride 110 H (98-107) mmol/L Carbon Dioxide 23.5 (21.0-32.0) mmol/L BUN 37 H (7.0-18.0) mg/dL Creatinine 1.5 H (0.6-1.0) mg/dL Est Cr Clr Drug Dosing 28.12 mL/min Estimated GFR (MDRD) 33.2 ml/min Glucose 154 H (74-106) mg/dL POC Glucose 120 H (70-99) mg/dL Calcium 7.9 L (8.5-10.1) mg/dL Blood Type Antibody Screen Crossmatch 12/22/20 Range/Units 03:35 WBC (4.0-11.0) K/uL RBC (4.30-5.90) M/uL Hgb (12.0-16.0) g/dL Hct (36.0-46.0) % MCV (80.0-98.0) fL MCH (27.0-32.0) pg MCHC (31.0-37.0) g/dL RDW Std Deviation (28.0-62.0) fl RDW Coeff of Arelis (11.0-15.0) % Plt Count (150-400) K/uL MPV (7.40-12.00) fL Neut % (Auto) (48.0-80.0) % Lymph % (Auto) (16.0-40.0) % [place] % (Auto) (0.0-15.0) % Eos % (Auto) (0.0-7.0) % Baso % (Auto) (0.0-1.5) % Neut # (Auto) (1.4-5.7) K/uL Lymph # (Auto) (0.6-2.4) K/uL [place] # (Auto) (0.0-0.8) K/uL Eos # (Auto) (0.0-0.7) K/uL Baso # (Auto) (0.0-0.1) K/uL Nucleated RBC % /100WBC Nucleated RBCs # K/uL Sodium (136-145) mmol/L Potassium (3.5-5.1) mmol/L Chloride (98-107) mmol/L Carbon Dioxide (21.0-32.0) mmol/L BUN (7.0-18.0) mg/dL Creatinine (0.6-1.0) mg/dL Est Cr Clr Drug Dosing mL/min Estimated GFR (MDRD) ml/min Glucose (74-106) mg/dL POC Glucose (70-99) mg/dL Calcium (8.5-10.1) mg/dL Blood Type O POSITIVE Antibody Screen NEGATIVE Crossmatch See Detail Med Orders - Current: Current Medications Acetaminophen (Acetaminophen 325 Mg Tab) 650 mg PO Q4H PRN PRN Reason: Pain (Mild 1-3)/fever Albuterol/Ipratropium (Albuterol/Ipratropium 3.0-0.5 Mg/3 Ml Neb Soln) 3 ml NEB Q4HRRT PRN PRN Reason: Shortness Of Breath/wheezing Ceftriaxone Sodium/Dextrose 1 (gm/ Premix) 50 mls @ 100 mls/hr IV Q24H [facility] Last Admin: 12/22/20 01:26 Dose: 100 mls/hr Documented by: Pantoprazole Sodium 80 mg/ (Sodium Chloride) 100 mls @ 10 mls/hr IV DAILY [facility] Last Admin: 12/22/20 08:53 Dose: 10 mls/hr Documented by: Levothyroxine Sodium (Levothyroxine 88 Mcg Tab) 88 mcg PO ACBREAKFAST [facility] Last Admin: 12/22/20 08:52 Dose: Not Given Documented by: Ondansetron HCl (Ondansetron 4 Mg/2 Ml Sdv) 4 mg IVPUSH Q4H PRN PRN Reason: Nausea/Vomiting Memantine Er 14mg (Cap) 1 each PO DAILY [facility] Last Admin: 12/22/20 09:22 Dose: Not Given Documented by: Sodium Chloride (Sodium Chloride 0.9% 2.5 Ml Syringe) 2.5 ml FLUSH ASDIRECTED PRN PRN Reason: Keep Vein Open Discontinued Medications Aspirin (Aspirin 81 Mg Tab.Chew) 81 mg PO DAILY [facility] Last Admin: 12/21/20 09:04 Dose: 81 mg Documented by: Famotidine (Famotidine 20 Mg/2 Ml Sdv) 20 mg IVPUSH ONETIME ONE Stop: 12/20/20 21:11 Last Admin: 12/20/20 21:21 Dose: 20 mg Documented by: Sodium Chloride (Normal Saline) 1,000 mls @ 999 mls/hr IV .Bolus ONE Stop: 12/20/20 22:10 Last Admin: 12/20/20 21:21 Dose: 999 mls/hr Documented by: Sodium Chloride (Normal Saline) 1,000 mls @ 250 mls/hr IV .Bolus ONE Stop: 12/21/20 01:49 Last Admin: 12/20/20 23:28 Dose: 250 mls/hr Documented by: Lactated Ringer's (Ringers, Lactated) 1,000 mls @ 125 mls/hr IV ASDIRECTED [facility] Last Infusion: 12/21/20 08:58 Dose: 75 mls/hr Documented by: Pantoprazole Sodium 40 mg/ (Sodium Chloride) 10 mls @ 300 mls/hr IV DAILY [facility] Last Admin: 12/21/20 09:04 Dose: 300 mls/hr Documented by: Ceftriaxone Sodium 1 gm/ (Sodium Chloride) 50 mls @ 100 mls/hr IV Q24H [facility] Last Admin: 12/21/20 04:27 Dose: Not Given Documented by: Ceftriaxone Sodium/Dextrose (Rocephin In Dextrose,Iso-Osm 1 Gm/50 Ml) Confirm Administered Dose 50 mls @ as directed .ROUTE .STK-MED ONE Stop: 12/21/20 01:27 Last Admin: 12/21/20 01:32 Dose: 100 mls/hr Documented by: Lactated Ringer's (Ringers, Lactated) 1,000 mls @ 125 mls/hr IV Q13H [facility] Last Admin: 12/22/20 04:17 Dose: Not Given Documented by: Lactated Ringer's (Ringers, Lactated) 500 mls @ 999 mls/hr IV .BOLUS ONE Stop: 12/22/20 03:59 Last Admin: 12/22/20 03:46 Dose: 999 mls/hr Documented by: Pantoprazole Sodium 40 mg/ (Sodium Chloride) 10 mls @ 300 mls/hr IV DAILY [facility] Last Admin: 12/22/20 03:49 Dose: 300 mls/hr Documented by: Pantoprazole Sodium 80 mg/ (Sodium Chloride) 100 mls @ 10 mls/hr IV DAILY [facility] Last Admin: 12/22/20 09:19 Dose: Not Given Documented by: Lactated Ringer's (Ringers, Lactated) 1,000 mls @ 999 mls/hr IV .BOLUS ONE Stop: 12/22/20 06:21 Last Admin: 12/22/20 05:25 Dose: 999 mls/hr Documented by: Lorazepam (Lorazepam 2 Mg/Ml Sdv) Confirm Administered Dose 2 mg .ROUTE .STK-MED ONE Stop: 12/21/20 23:37 Last Admin: 12/22/20 02:16 Dose: Not Given Documented by: Lorazepam (Lorazepam 2 Mg/Ml Sdv) 1 mg IVPUSH ONETIME ONE Stop: 12/21/20 23:44 Last Admin: 12/22/20 01:25 Dose: 1 mg Documented by: Ondansetron HCl (Ondansetron 4 Mg/2 Ml Sdv) 4 mg IVPUSH ONETIME ONE Stop: 12/20/20 21:11 Last Admin: 12/20/20 21:21 Dose: 4 mg Documented by: Pantoprazole Sodium (Pantoprazole 40 Mg Vial) Confirm Administered Dose 40 mg .ROUTE .STK-MED ONE Stop: 12/22/20 03:42 Last Admin: 12/22/20 03:54 Dose: Not Given Documented by: Pantoprazole Sodium (Pantoprazole 40 Mg Vial) Confirm Administered Dose 80 mg .ROUTE .STK-MED ONE Stop: 12/22/20 05:29 Last Admin: 12/22/20 05:54 Dose: Not Given Documented by: Sodium Chloride (Sodium Chloride 0.9% 10 Ml Syringe) 10 ml FLUSH ASDIRECTED PRN PRN Reason: Keep Vein Open Sodium Chloride (Sodium Chloride 0.9% 2.5 Ml Syringe) 2.5 ml FLUSH ASDIRECTED PRN PRN Reason: Keep Vein Open
[2020-12-22 10:49] VITALS: BP 122/68; PULSE 82
== END 2020-12-22 10:35 | DRG 683 ==
LOC: MW.ED 20:56 → OBSVTOIN 12-21 00:31 → MW.MS 12-21 00:31
PROVIDERS: ADMIT Student in an Organized Health Care Education/Training Program; ATTEND Student in an Organized Health Care Education/Training Program
PROC: 30233N1 Transfusion of Nonautologous Red Blood Cells into Peripheral Vein, Percutaneous Approach (ICD-10-PCS; principal; 2020-12-20)
DX: N17.9 Acute kidney failure, unspecified (principal); N30.00 Acute cystitis without hematuria; R53.1 Weakness; N39.0 Urinary tract infection, site not specified; K92.2 Gastrointestinal hemorrhage, unspecified; R19.7 Diarrhea, unspecified; G30.9 Alzheimer's disease, unspecified; F02.80 Dementia in other diseases classified elsewhere, unspecified severity, without behavioral disturbance, psychotic disturbance, mood disturbance, and anxiety; Z20.822 Contact with and (suspected) exposure to COVID-19; Z66 Do not resuscitate; E03.9 Hypothyroidism, unspecified; I10 Essential (primary) hypertension; N20.0 Calculus of kidney; E86.0 Dehydration; H54.7 Unspecified visual loss; M54.9 Dorsalgia, unspecified; G89.29 Other chronic pain; M06.9 Rheumatoid arthritis, unspecified; Z90.49 Acquired absence of other specified parts of digestive tract; Z90.710 Acquired absence of both cervix and uterus; Z79.890 Hormone replacement therapy; Z79.82 Long term (current) use of aspirin; Z79.899 Other long term (current) drug therapy
CPT/HCPCS: 36415; 71045; 74176; 80053; 81001; 83605; 83690; 83735; 83880; 84484; 85025; 87086; 93005; 96374; 96375; 99285; J2405; J3490; J7030 ×2; U0002; 36430; 80048; 82947; 84100; 86850; 86900; 86901; 86920; 86921; 86922; 87088; 87186; 93010; 97116-GP; 97162-GP; 99284; A9270-GY; C9113; J0696; J2060; J7120; P9016